=== PATIENT | female | born 1965 | race Caucasian/White ===

== ENCOUNTER 2018-07-01 06:15 | Inpatient (IN) | payer MEDICAID ==
[2018-06-24 11:22] LABS: ALBUMIN 3.5 G/DL (3.4-5.0); ALKALINE PHOSPHATASE 168 IU/L (46-116); BLOOD UREA NITROGEN 8 MG/DL (7-18); BUN/CREATININE RATIO 10.4 (6.6-38.0); CALCIUM 9.3 MG/DL (8.5-10.1); CHLORIDE 100 MMOL/L (99-107); CREATININE 0.77 MG/DL (0.40-0.90); PRE OP ALT 21 U/L (30-65); PRE OP ANION GAP 11 (8-16); PRE OP AST 24 U/L (10-37); PRE OP BILIRUB, TOTAL 0.2 MG/DL (0.0-1.0); PRE OP GLUCOSE 75 MG/DL (70-104); PRE OP SODIUM 143 MMOL/L (135-145); TOTAL CARBON DIOXIDE 31.9 MMOL/L (24-32); eGFR 79 ML/MIN
[2018-06-24 11:24] LABS: PRE OP POTASSIUM 2.9 MMOL/L (3.4-5.1)
[2018-06-24 11:30] LABS: BASOPHILS % (AUTO) 0.6 % (0-1); EOSINOPHILS # (AUTO) 0.1 X10'3 (0-0.9); EOSINOPHILS % (AUTO) 2.8 % (0-6); LYMPHOCYTES # (AUTO) 1.1 X10'3 (1.1-4.8); LYMPHOCYTES % (AUTO) 42.8 % (21-51); MEAN CORPUSCULAR HEMOGLOBIN 34.3 PG (27.0-31.0); MEAN CORPUSCULAR HGB CONC 33.7 % (33.0-36.5); MEAN CORPUSCULAR VOLUME 101.8 FL (78-98); MEAN PLATELET VOLUME 8.2 FL (7.4-10.4); MONOCYTES # (AUTO) 0.3 X10'3 (0-0.9); MONOCYTES % (AUTO) 12.8 % (2-12); NEUTROPHILS # (AUTO) 1.1 X10'3 (1.8-7.7); PRE OP HEMATOCRIT 41.1 % (35.0-45.0); PRE OP HEMOGLOBIN 13.9 g/dL (12.0-16.0); PRE OP PLATELET COUNT 215 X10'3 (140-440); RED BLOOD COUNT 4.03 X10'6 (4.20-5.60); RED CELL DISTRIBUTION WIDTH 16.3 % (11.5-14.5)
[2018-06-24 12:51] LABS: TOTAL CELLS COUNTED 100
[2018-06-24 12:52] LABS: PLATELET ESTIMATE NORMAL
[2018-07-01] VITALS (21 sets, daily range): BP systolic 84–128; BP diastolic 50–77
[~2018-07-01] VITALS: Ht 160 cm; Wt 42.7 kg
[~2018-07-01 06:15] MED LIST: BIOT300T2 PO; CHOL400T14 PO; DULO-31 PO; FOLI1TAB16 PO; LEVE500T PO; MIRT15TA PO; MULT-1085 PO; POTA20TA19 PO; VANCOMYCIN INJ 1000 MG in NORMAL SALINE 250ml IV.SOLN IV ONE; VITA150T PO; VITAMIN B-1; VITE1000C PO; cefazolin/dext.iso 2gm/100 ML IV ONE; famotidine 20mg tablet PO ONE; ringers solution, lacted 1,000 ML IV SCH
[2018-07-01] MEDS ORDERED: LIDOcaine 1% (10mg/ml) 2ml vial ONE (06:33)
[2018-07-01 07:31] LABS: ISTAT CREATININE 0.8 mg/dL (0.6-1.1); ISTAT HGB 14.3 g/dl (12.0-16.0); ISTAT IONIZED CALCIUM 1.25 mmol/L (1.03-1.32); ISTAT K 4.4 mmol/L (3.5-5.1); POC BUN/CREATININE RATIO 11.3 (6.6-38.0)
[2018-07-01] MEDS ORDERED: cloNIDine hcl/PF 100mcg/ml inj ONE (08:24)
[2018-07-01] MEDS ORDERED: sevoflurane 250ml liquid IH ONE (08:25)
[2018-07-01] MEDS ORDERED: midazolam 2 mg/2 ml injection ONE ×2 (08:26→08:28)
[2018-07-01] MEDS ORDERED: fentaNYL/PF 50MCG/1 ML 2ML syringe ONE (08:26)
[2018-07-01] MEDS ORDERED: NORMAL SALINE IV ONE ×3 (08:30→13:40)
[2018-07-01] MEDS ORDERED: TRANEXAMIC ACID IV ONE ×3 (08:30→13:40)
[2018-07-01] MEDS ORDERED: propofol inj 20 ML IV ONE (09:11)
[2018-07-01] MEDS ORDERED: ROPIVAcaine 0.5% (5mg/ml) 30ml vial ONE ×2 (09:11→09:12)
[2018-07-01] MEDS ORDERED: dexamethasone sod phosphate 4mg/ml inj. ONE (09:11)
[2018-07-01] MEDS ORDERED: vancomycin 1,000mg inj ONE (09:12)
[2018-07-01] MEDS ORDERED: ketorolac trometh. 30mg/ml inj. ONE (09:12)
[2018-07-01] MEDS ORDERED: ePHEDrine 50MG/ML INJ. ONE (09:12)
[2018-07-01] MEDS ORDERED: ringers solution, lacted 1,000 ML IV SCH (10:37)
[2018-07-01] MEDS ORDERED: oxyCODONE IR 5mg (immed. release) tablet PO PRN ×2 (10:40)
[2018-07-01] MEDS ORDERED: magnesium hydroxide 30ml (MOM) UD suspension PO PRN (10:40)
[2018-07-01] MEDS ORDERED: HYDROmorphone 1 mg/ml syringe IV PRN ×2 (10:40)
[2018-07-01] MEDS ORDERED: morphine 4 MG/ML inj SYRINge IV PRN (10:40)
[2018-07-01] MEDS ORDERED: diphenhydrAMINE 25mg capsule PO PRN ×2 (10:40)
[2018-07-01] MEDS ORDERED: meperidine/PF 25mg/ml syringe IV PRN (10:40)
[2018-07-01] MEDS ORDERED: bisacodyl 10mg suppository rectal RC PRN (10:40)
[2018-07-01] MEDS ORDERED: ondansetron/PF 4mg/2ml inj IV PRN ×2 (10:40)
[2018-07-01] MEDS ORDERED: acetaminophen 325mg tablet PO PRN (10:40)
[2018-07-01] MEDS ORDERED: ondansetron/PF 4mg/2ml inj ONE (10:46)
[2018-07-01] MEDS: gabapentin 300mg capsule PO SCH ×2 (13:15→20:11)
[2018-07-01] MEDS: acetaminophen 325mg tablet PO SCH ×2 (14:16→20:12)
[2018-07-01] MEDS: ketorolac tromethamine 15mg/ml inj. IV SCH ×2 (14:16→20:12)
[2018-07-01] MEDS: ceFAZolin 1GM/D5W- ADD-VANTAGE 50 ML IV SCH (16:06)
[2018-07-01] MEDS: potassium cl 20mEq in 1/2 NS 1,000 ML IV SCH ×2 (16:06→18:39)
[2018-07-01] MEDS ORDERED: vancomycin/NS 1 GM ADD-VANTAGE 250 ML IV SCH (20:00)
[2018-07-01] MEDS: levetiracetam 250mg tablet PO SCH (20:11)
[2018-07-01] MEDS ORDERED: mirtazapine 15mg tablet PO SCH (21:00)
[2018-07-01] MEDS ORDERED: sennosides 8.6mg tablet PO SCH (21:00)
[2018-07-02] MEDS: ketorolac tromethamine 15mg/ml inj. IV SCH ×2 (01:19→07:34)
[2018-07-02] MEDS: acetaminophen 325mg tablet PO SCH ×2 (01:19→07:36)
[2018-07-02] MEDS: ceFAZolin 1GM/D5W- ADD-VANTAGE 50 ML IV SCH (01:19)
[2018-07-02] MEDS: potassium cl 20mEq in 1/2 NS 1,000 ML IV SCH (01:25)
[2018-07-02 02:00] VITALS: BP 93/53
[2018-07-02 06:08] LABS: BASOPHILS % (AUTO) 0.3 % (0-1); EOSINOPHILS # (AUTO) 0.1 X10'3 (0-0.9); EOSINOPHILS % (AUTO) 1.1 % (0-6); HEMATOCRIT 31.3 % (35.0-45.0); HEMOGLOBIN 10.5 g/dl (12.0-16.0); LYMPHOCYTES # (AUTO) 1.3 X10'3 (1.1-4.8); LYMPHOCYTES % (AUTO) 20.7 % (21-51); MEAN CORPUSCULAR HGB CONC 33.6 % (33.0-36.5); MEAN PLATELET VOLUME 7.7 FL (7.4-10.4); MONOCYTES # (AUTO) 0.4 X10'3 (0-0.9); MONOCYTES % (AUTO) 6.1 % (2-12); NEUTROPHILS # (AUTO) 4.5 X10'3 (1.8-7.7); NEUTROPHILS % (AUTO) 71.8 % (42-75); PLATELET COUNT 241 X10'3 (140-440); RED CELL DISTRIBUTION WIDTH 15.8 % (11.5-14.5); WHITE BLOOD COUNT 6.3 X10'3 (4.5-11.0)
[2018-07-02 06:20] LABS: ANION GAP 4 (8-16); CHLORIDE 109 MMOL/L (99-107); POTASSIUM 4.9 MMOL/L (3.5-5.1); SODIUM 141 MMOL/L (135-145); TOTAL CARBON DIOXIDE 28.5 MMOL/L (24-32)
[2018-07-02] MEDS: gabapentin 300mg capsule PO SCH (07:35)
[2018-07-02] MEDS: levetiracetam 250mg tablet PO SCH (07:35)
[2018-07-02] MEDS ORDERED: potassium Cl 20 mEq SR tablet PO SCH (08:00)
[2018-07-02] MEDS ORDERED: folic acid 1mg tablet PO SCH (08:00)
[2018-07-02] MEDS ORDERED: multivitamins, therapeutics tablet PO SCH (08:00)
[2018-07-02] MEDS ORDERED: duloxetine 30mg CAPSULE.DR PO SCH (08:00)
[2018-07-02] MEDS ORDERED: aspirin 325mg tablet PO SCH (08:30)
[2018-07-02] MEDS ORDERED: celeCOXIB 100mg capsule PO SCH (20:00)
[2018-07-03] MEDS ORDERED: acetaminophen 325mg tablet PO PRN (10:40)
== END 2018-07-02 13:20 | disposition home or self-care (01) | DRG 315 ==
LOC: PAS IN 06:15 → ORTHO 4S 12:17 → EDSTATUS 13:15
PROVIDERS: ADMIT Orthopaedic Surgery; ATTEND Orthopaedic Surgery
PROC: 3E0T3BZ Introduction of Anesthetic Agent into Peripheral Nerves and Plexi, Percutaneous Approach (ICD-10-PCS; 2018-07-01)
PROC: BP1 Imaging, Non-Axial Upper Bones, Fluoroscopy (ICD-10-PCS; 2018-07-01)
PROC: 0PSG04Z Reposition Left Humeral Shaft with Internal Fixation Device, Open Approach (ICD-10-PCS; principal; 2018-07-01 08:25)
DX: S42.322A Displaced transverse fracture of shaft of humerus, left arm, initial encounter for closed fracture (principal); E43 Unspecified severe protein-calorie malnutrition; D62 Acute posthemorrhagic anemia; G40.909 Epilepsy, unspecified, not intractable, without status epilepticus; G89.29 Other chronic pain; F32.9 Major depressive disorder, single episode, unspecified; R33.9 Retention of urine, unspecified; Z79.899 Other long term (current) drug therapy
CPT/HCPCS: 36415; 73060; 76001; 80047; 80051; 80053; 85025; 87070; 93005; 97116; 97161; A4565; A7000; C1713; G0378; J0690; J0735; J1100; J1170; J1885; J2250; J2405; J2704; J2795; J3010; J3370; J3490; J7030; J7040; J7120

== ENCOUNTER 2018-07-19 14:32 | Inpatient (IN) | payer MEDICAID ==
[~2018-07-19] VITALS: Ht 160 cm; Wt 47.0 kg
[~2018-07-19 14:32] MED LIST changes: -VANCOMYCIN INJ 1000 MG in NORMAL SALINE 250ml IV.SOLN IV ONE; -cefazolin/dext.iso 2gm/100 ML IV ONE; -famotidine 20mg tablet PO ONE; -ringers solution, lacted 1,000 ML IV SCH
[2018-07-19] MEDS ORDERED: normal saline 1000ml 1,000 ML IV ONE (14:56)
[2018-07-19] MEDS ORDERED: TETanus/Pertussis (Acell)/Diphther VAC/PF (Tdap-Adult) 0.5ml syringe IM ONE (15:10)
[2018-07-19] MEDS ORDERED: LIDOcaine 1% w/EPI 1:100,000 30ml vial (MDV) IJ ONE (15:10)
[2018-07-19] MEDS ORDERED: LIDOcaine 1.5% w/epinephrine 1:200,000 5ml ampul IJ ONE (15:10)
[2018-07-19 15:38] LABS: BASOPHILS % (AUTO) 0.1 % (0-1); EOSINOPHILS % (AUTO) 0.1 % (0-6); HEMATOCRIT 32.1 % (35.0-45.0); HEMOGLOBIN 10.9 g/dl (12.0-16.0); LYMPHOCYTES # (AUTO) 0.4 X10'3 (1.1-4.8); LYMPHOCYTES % (AUTO) 7.4 % (21-51); MEAN CORPUSCULAR HEMOGLOBIN 34.8 PG (27.0-31.0); MEAN CORPUSCULAR HGB CONC 33.8 % (33.0-36.5); MEAN CORPUSCULAR VOLUME 102.8 FL (78-98); MEAN PLATELET VOLUME 6.1 FL (7.4-10.4); MONOCYTES # (AUTO) 0.2 X10'3 (0-0.9); NEUTROPHILS # (AUTO) 4.6 X10'3 (1.8-7.7); NEUTROPHILS % (AUTO) 88.4 % (42-75); PLATELET COUNT 278 X10'3 (140-440); RED BLOOD COUNT 3.13 X10'6 (4.20-5.60); RED CELL DISTRIBUTION WIDTH 16.1 % (11.5-14.5); WHITE BLOOD COUNT 5.2 X10'3 (4.5-11.0)
[2018-07-19 15:51] LABS: PARTIAL THROMBOPLASTIN TIME 26 SECONDS (22-32); PROTHROMBIN TIME 10.5 SECONDS (9.0-12.0)
[2018-07-19 15:53] LABS: ALANINE AMINOTRANSFERASE 20 U/L (12-78); ALBUMIN 2.9 G/DL (3.4-5.0); ALBUMIN/GLOBULIN RATIO 0.9 (1.1-1.5); ALKALINE PHOSPHATASE 235 IU/L (46-116); ANION GAP 7 (8-16); ASPARTATE AMINO TRANSFERASE 35 U/L (10-37); BILIRUBIN,TOTAL 0.5 MG/DL (0.1-1.0); BLOOD UREA NITROGEN 5 MG/DL (7-18); BUN/CREATININE RATIO 9.1 (6.6-38.0); CALCIUM 8.4 MG/DL (8.5-10.1); CHLORIDE 94 MMOL/L (99-107); CREATININE 0.55 MG/DL (0.40-0.90); ETHANOL < 0.010 GM/DL (0.0-0.010); GLUCOSE 157 MG/DL (70-104); MAGNESIUM 1.5 MG/DL (1.5-2.4); SODIUM 138 MMOL/L (135-145); eGFR > 90 ML/MIN
[2018-07-19] MEDS ORDERED: LORazepam 2 mg/ml vial IV ONE ×2 (15:55→18:25)
[2018-07-19 15:56] LABS: POTASSIUM 2.8 MMOL/L (3.5-5.1)
[2018-07-19] MEDS ORDERED: levetiracetam inj 1,000 MG in normal saline 100ml IV soln 90 ML IV ONE (16:00)
[2018-07-19] MEDS ORDERED: magnesium 2GM in 50ml NS 50 ML IV SCH (16:05)
[2018-07-19] MEDS ORDERED: potassium 10mEq/100ml NS w/LIDOcaine (10mg/bag) IV ONE (16:05)
[2018-07-19 16:10] LABS: CREATINE KINASE 115 U/L (26-192)
[2018-07-19 17:12] LABS: PHOSPHORUS 3.2 MG/DL (2.3-4.5)
[2018-07-19 17:37] LABS: URINE HCG NEGATIVE (NEG)
[2018-07-19 17:40] LABS: CLARITY,URINE SLIGHTLY CLOUDY (Clear); COLOR,URINE YELLOW (Yellow); GLUCOSE, URINE NEGATIVE (Neg); KETONES,URINE NEGATIVE (Neg); LEUKOCYTE ESTERASE ,URINE NEGATIVE (Neg); NITRITES, URINE NEGATIVE (Neg); OCCULT BLOOD,URINE NEGATIVE (Neg); PH,URINE 8.5 (4.8-8.0); PROTEIN,URINE NEGATIVE (Neg); UROBILINOGEN,URINE 0.2 E.U/dL (0.2-1.0)
[2018-07-19 17:41] LABS: UA COLLECTION TYPE CLN CATCH MIDSTREAM
[2018-07-19 17:49] LABS: AMORPHOUS PHOSPHATES 3+; BACTERIA,URINE NONE SEEN /HPF (Neg); SQUAMOUS EPITHELIAL CELL,UR FEW /LPF (FEW); WBC,URINE 0-4 /HPF (0-4)
[2018-07-19 17:52] LABS: RBC,URINE 0-2 /HPF (0-2); URINE AMPHETAMINE SCREEN NEGATIVE (Neg); URINE BARBITUATE SCREEN NEGATIVE (Neg); URINE BENZODIAZEPINES SCREEN POSITIVE (Neg); URINE CANNABINOID SCREEN POSITIVE (Neg); URINE COCAINE SCREEN NEGATIVE (Neg); URINE METHADONE SCREEN NEGATIVE (Neg); URINE OPIATE SCREEN POSITIVE (Neg); URINE PHENCYCLIDINE SCREEN NEGATIVE (Neg)
[2018-07-19] MEDS ORDERED: LORazepam 2 mg/ml vial IV PRN (18:25)
[2018-07-19] MEDS ORDERED: normal saline 1000ml 1,000 ML IV SCH (18:41)
[2018-07-19] MEDS ORDERED: pantoprazole 40 MG vial IV ONE (18:41)
[2018-07-19] MEDS ORDERED: ondansetron/PF 4mg/2ml inj IV PRN (18:45)
[2018-07-19] MEDS ORDERED: magnesium Cl slow-release 64mg tablet PO PRN (18:45)
[2018-07-19] MEDS ORDERED: potassium Cl 20 mEq SR tablet PO PRN (18:45)
[2018-07-19] MEDS ORDERED: acetaminophen 650mg rectal suppository RC PRN (18:45)
[2018-07-19] MEDS ORDERED: sodium phosphate inj. 15 MMOL in dextrose 5%-water 150 ML IV PRN (18:45)
[2018-07-19] MEDS ORDERED: magnesium 4gm in 100ml NS 100 ML IV PRN (18:45)
[2018-07-19] MEDS ORDERED: magnesium 1gm/100ml D5W IVPB 100 ML IV PRN (18:45)
[2018-07-19] MEDS ORDERED: Neutra Phos packet PO PRN (18:45)
[2018-07-19] MEDS ORDERED: sodium phosphate inj. 30 MMOL in dextrose 5%-water 250 ML IV PRN (18:45)
[2018-07-19] MEDS ORDERED: potassium Cl 40MEQ/NS 500ml 500 ML IV PRN ×2 (18:45)
[2018-07-19] MEDS: K, MAG and/or Phos replacement - Verify level? MC SCH (18:50)
[2018-07-20 03:35] LABS: ALBUMIN 1.9 G/DL (3.4-5.0); ANION GAP 8 (8-16); BLOOD UREA NITROGEN 3 MG/DL (7-18); CHLORIDE 108 MMOL/L (99-107); MAGNESIUM 1.7 MG/DL (1.5-2.4); POTASSIUM 3.4 MMOL/L (3.5-5.1); SODIUM 143 MMOL/L (135-145); TOTAL CARBON DIOXIDE 27.1 MMOL/L (24-32)
[2018-07-20 03:48] LABS: ALANINE AMINOTRANSFERASE 15 U/L (12-78); ALBUMIN/GLOBULIN RATIO 0.8 (1.1-1.5); ALKALINE PHOSPHATASE 178 IU/L (46-116); ASPARTATE AMINO TRANSFERASE 28 U/L (10-37); BILIRUBIN,TOTAL 0.5 MG/DL (0.1-1.0); BUN/CREATININE RATIO 7.5 (6.6-38.0); GLUCOSE 62 MG/DL (70-104); TOTAL PROTEIN 4.3 G/DL (6.4-8.2); eGFR > 90 ML/MIN
[2018-07-20 03:49] LABS: CALCIUM 6.7 MG/DL (8.5-10.1)
[2018-07-20] MEDS ORDERED: glucagon, human recombinant 1mg kit SUBCUT PRN (04:00)
[2018-07-20] MEDS ORDERED: dextrose ORAL solution 15 GM/59 ML bottle PO PRN ×2 (04:00)
[2018-07-20] MEDS ORDERED: dextrose 50%-water 50ml dispensing syringe IV ONE (04:00)
[2018-07-20] MEDS ORDERED: dextrose 50%-water 50ml dispensing syringe IV PRN ×2 (04:00)
[2018-07-20] MEDS: dextrose 5%-1/2 normal saline 1,000 ML IV SCH ×3 (04:11→22:29)
[2018-07-20] MEDS ORDERED: levetiracetam inj 500 MG in normal saline 100ml IV soln 95 ML IV SCH (08:00)
[2018-07-20] MEDS: K, MAG and/or Phos replacement - Verify level? MC SCH (08:00)
[2018-07-20] MEDS: pantoprazole 40 MG vial IV SCH (10:01)
[2018-07-20] MEDS ORDERED: FOLI0.4T2 PO (11:57)
[2018-07-20] MEDS ORDERED: HYDR-4353 PO (11:57)
[2018-07-20] MEDS ORDERED: BIOT1TAB2 (11:57)
[2018-07-20 12:49] LABS: BASOPHILS % (AUTO) 0 % (0-1); EOSINOPHILS # (AUTO) 0.1 X10'3 (0-0.9); EOSINOPHILS % (AUTO) 1.3 % (0-6); HEMATOCRIT 32.7 % (35.0-45.0); HEMOGLOBIN 11.2 g/dl (12.0-16.0); LYMPHOCYTES # (AUTO) 0.6 X10'3 (1.1-4.8); LYMPHOCYTES % (AUTO) 15.4 % (21-51); MEAN CORPUSCULAR HEMOGLOBIN 35.1 PG (27.0-31.0); MEAN CORPUSCULAR HGB CONC 34.3 % (33.0-36.5); MEAN CORPUSCULAR VOLUME 102.3 FL (78-98); MEAN PLATELET VOLUME 6.8 FL (7.4-10.4); MONOCYTES # (AUTO) 0.2 X10'3 (0-0.9); MONOCYTES % (AUTO) 4.3 % (2-12); PLATELET COUNT 267 X10'3 (140-440); WHITE BLOOD COUNT 3.7 X10'3 (4.5-11.0)
[2018-07-20] MEDS ORDERED: aspirin 325mg tablet PO ONE (14:20)
[2018-07-20 14:32] VITALS: BP 132/81
[2018-07-20 15:22] LABS: CHOL/HDL RATIO 1.8 (0.00-4.99); CHOLESTEROL 175 MG/DL (0-200); HDL CHOLESTEROL 96 MG/DL (35-60); LDL CHOLESTEROL 67 MG/DL (50-100); TRIGLYCERIDES 35 MG/DL (20-135)
[2018-07-20] MEDS: thiamine inj. 100 MG, magnesium sulf injection 2 GM, MVI, adult No.4 with vit. K 10 ML ... IV SCH ×4 (16:17)
[2018-07-20] MEDS ORDERED: LORazepam 2 mg/ml vial IM PRN (17:20)
[2018-07-20] MEDS: morphine 2 MG/ML inj. syringe IV PRN (17:32)
[2018-07-20 18:00] VITALS: BP 156/86
[2018-07-20] MEDS: LORazepam 2 mg/ml vial IV PRN (21:07)
[2018-07-20] MEDS: levetiracetam inj 750 MG in normal saline 100ml IV soln 92.5 ML IV SCH (21:53)
[2018-07-20 22:00] VITALS: BP 145/84
[2018-07-21 02:30] VITALS: BP 131/83
[2018-07-21 06:16] LABS: BASOPHILS % (AUTO) 0.4 % (0-1); EOSINOPHILS # (AUTO) 0.3 X10'3 (0-0.9); EOSINOPHILS % (AUTO) 7.2 % (0-6); HEMATOCRIT 32.1 % (35.0-45.0); HEMOGLOBIN 11.1 g/dl (12.0-16.0); LYMPHOCYTES # (AUTO) 1.1 X10'3 (1.1-4.8); LYMPHOCYTES % (AUTO) 30.3 % (21-51); MEAN CORPUSCULAR HEMOGLOBIN 34.9 PG (27.0-31.0); MEAN CORPUSCULAR HGB CONC 34.4 % (33.0-36.5); MEAN CORPUSCULAR VOLUME 101.3 FL (78-98); MONOCYTES # (AUTO) 0.3 X10'3 (0-0.9); MONOCYTES % (AUTO) 8.7 % (2-12); NEUTROPHILS % (AUTO) 53.4 % (42-75); PLATELET COUNT 250 X10'3 (140-440); RED BLOOD COUNT 3.17 X10'6 (4.20-5.60); RED CELL DISTRIBUTION WIDTH 15.7 % (11.5-14.5); WHITE BLOOD COUNT 3.7 X10'3 (4.5-11.0)
[2018-07-21 06:34] LABS: ALANINE AMINOTRANSFERASE 17 U/L (12-78); ALBUMIN 2.4 G/DL (3.4-5.0); ALBUMIN/GLOBULIN RATIO 0.8 (1.1-1.5); ALKALINE PHOSPHATASE 208 IU/L (46-116); ANION GAP 7 (8-16); ASPARTATE AMINO TRANSFERASE 25 U/L (10-37); BILIRUBIN,TOTAL 0.6 MG/DL (0.1-1.0); BLOOD UREA NITROGEN 4 MG/DL (7-18); BUN/CREATININE RATIO 7.1 (6.6-38.0); CALCIUM 8.1 MG/DL (8.5-10.1); CHLORIDE 107 MMOL/L (99-107); CREATININE 0.56 MG/DL (0.40-0.90); GLUCOSE 103 MG/DL (70-104); MAGNESIUM 2.2 MG/DL (1.5-2.4); PHOSPHORUS 2.4 MG/DL (2.3-4.5); POTASSIUM 3.3 MMOL/L (3.5-5.1); SODIUM 142 MMOL/L (135-145); TOTAL CARBON DIOXIDE 27.7 MMOL/L (24-32); TOTAL PROTEIN 5.3 G/DL (6.4-8.2); eGFR > 90 ML/MIN
[2018-07-21] MEDS: K, MAG and/or Phos replacement - Verify level? MC SCH (08:00)
[2018-07-21] MEDS: pantoprazole 40 MG vial IV SCH (09:15)
[2018-07-21] MEDS: potassium Cl 20 mEq SR tablet PO PRN ×2 (09:15→19:05)
[2018-07-21] MEDS: thiamine inj. 100 MG, magnesium sulf injection 2 GM, MVI, adult No.4 with vit. K 10 ML ... IV SCH ×4 (09:15)
[2018-07-21] MEDS: levetiracetam inj 750 MG in normal saline 100ml IV soln 92.5 ML IV SCH (09:15)
[2018-07-21] MEDS: aspirin 325mg tablet PO SCH (09:16)
[2018-07-21 10:00] VITALS: BP 132/78
[2018-07-21] MEDS: dextrose 5%-1/2 normal saline 1,000 ML IV SCH (10:00)
[2018-07-21 14:00] VITALS: BP 117/75
[2018-07-21] MEDS: thiamine 100mg tablet PO SCH ×2 (15:20→19:05)
[2018-07-21 18:30] VITALS: BP 138/82
[2018-07-21] MEDS: levetiracetam 250mg tablet PO SCH (19:05)
[2018-07-21] MEDS: folic acid 0.4mg tablet PO SCH (19:05)
[2018-07-21] MEDS: duloxetine 30mg CAPSULE.DR PO SCH (19:05)
[2018-07-21] MEDS: magnesium Cl slow-release 64mg tablet PO SCH (19:06)
[2018-07-21] MEDS: acetaminophen 325mg tablet PO PRN (19:57)
[2018-07-21] MEDS ORDERED: non-formulary drug (Levetiracetam 500 MG) PO SCH (20:00)
[2018-07-21 21:44] VITALS: BP 125/79
[2018-07-22] MEDS: morphine 2 MG/ML inj. syringe IV PRN ×3 (00:18→21:35)
[2018-07-22] MEDS: thiamine 100mg tablet PO SCH ×4 (02:26→19:22)
[2018-07-22 03:19] VITALS: BP 142/91
[2018-07-22 06:27] LABS: BASOPHILS % (AUTO) 0.6 % (0-1); EOSINOPHILS # (AUTO) 0.4 X10'3 (0-0.9); HEMATOCRIT 30.6 % (35.0-45.0); HEMOGLOBIN 10.4 g/dl (12.0-16.0); LYMPHOCYTES # (AUTO) 1.1 X10'3 (1.1-4.8); LYMPHOCYTES % (AUTO) 24.7 % (21-51); MEAN CORPUSCULAR HEMOGLOBIN 34.9 PG (27.0-31.0); MEAN CORPUSCULAR VOLUME 102.8 FL (78-98); MEAN PLATELET VOLUME 6.9 FL (7.4-10.4); MONOCYTES # (AUTO) 0.4 X10'3 (0-0.9); MONOCYTES % (AUTO) 8.6 % (2-12); NEUTROPHILS # (AUTO) 2.6 X10'3 (1.8-7.7); NEUTROPHILS % (AUTO) 58.1 % (42-75); PLATELET COUNT 226 X10'3 (140-440); RED BLOOD COUNT 2.98 X10'6 (4.20-5.60); RED CELL DISTRIBUTION WIDTH 15.2 % (11.5-14.5); WHITE BLOOD COUNT 4.5 X10'3 (4.5-11.0)
[2018-07-22 06:48] LABS: ALANINE AMINOTRANSFERASE 16 U/L (12-78); ALBUMIN 2.4 G/DL (3.4-5.0); ALBUMIN/GLOBULIN RATIO 0.8 (1.1-1.5); ALKALINE PHOSPHATASE 188 IU/L (46-116); ANION GAP 7 (8-16); ASPARTATE AMINO TRANSFERASE 21 U/L (10-37); BILIRUBIN,TOTAL 0.5 MG/DL (0.1-1.0); BLOOD UREA NITROGEN 8 MG/DL (7-18); BUN/CREATININE RATIO 13.6 (6.6-38.0); CALCIUM 8.5 MG/DL (8.5-10.1); CHLORIDE 102 MMOL/L (99-107); CREATININE 0.59 MG/DL (0.40-0.90); GLUCOSE 99 MG/DL (70-104); MAGNESIUM 1.9 MG/DL (1.5-2.4); PHOSPHORUS 2.5 MG/DL (2.3-4.5); POTASSIUM 4.2 MMOL/L (3.5-5.1); SODIUM 136 MMOL/L (135-145); TOTAL CARBON DIOXIDE 27.2 MMOL/L (24-32); TOTAL PROTEIN 5.3 G/DL (6.4-8.2); eGFR > 90 ML/MIN
[2018-07-22] MEDS: K, MAG and/or Phos replacement - Verify level? MC SCH (08:17)
[2018-07-22] MEDS: duloxetine 30mg CAPSULE.DR PO SCH (08:36)
[2018-07-22] MEDS: pantoprazole 40mg Tablet.DR PO SCH (08:36)
[2018-07-22] MEDS: magnesium Cl slow-release 64mg tablet PO SCH ×2 (08:37→19:22)
[2018-07-22] MEDS: folic acid 0.4mg tablet PO SCH (08:37)
[2018-07-22] MEDS: levetiracetam 250mg tablet PO SCH ×2 (08:37→19:23)
[2018-07-22] MEDS: aspirin 325mg tablet PO SCH (08:37)
[2018-07-22] MEDS: multivitamins, therapeutics tablet PO SCH (08:37)
[2018-07-22] MEDS: cholecalciferol (vitamin D) 400 unit tablet PO SCH (08:37)
[2018-07-22] MEDS: vitamin B comp w/Vit. C tab 1 TAB TABLET PO SCH (08:37)
[2018-07-22 10:00] VITALS: BP 128/87
[2018-07-22 14:00] VITALS: BP 124/80
[2018-07-22 18:00] VITALS: BP 119/75
[2018-07-22 22:00] VITALS: BP 140/92
[2018-07-23] MEDS: LORazepam 2 mg/ml vial IV PRN (01:51)
[2018-07-23] MEDS: acetaminophen 325mg tablet PO PRN (01:52)
[2018-07-23] MEDS: thiamine 100mg tablet PO SCH ×4 (02:01→19:59)
[2018-07-23 05:00] VITALS: BP 142/88
[2018-07-23] MEDS: levetiracetam 250mg tablet PO SCH ×2 (07:58→19:58)
[2018-07-23] MEDS: magnesium Cl slow-release 64mg tablet PO SCH ×2 (07:59→19:58)
[2018-07-23] MEDS: duloxetine 30mg CAPSULE.DR PO SCH (07:59)
[2018-07-23] MEDS: vitamin B comp w/Vit. C tab 1 TAB TABLET PO SCH (07:59)
[2018-07-23] MEDS: aspirin 325mg tablet PO SCH (07:59)
[2018-07-23] MEDS: pantoprazole 40mg Tablet.DR PO SCH (07:59)
[2018-07-23] MEDS: folic acid 0.4mg tablet PO SCH (07:59)
[2018-07-23] MEDS: multivitamins, therapeutics tablet PO SCH (07:59)
[2018-07-23] MEDS: cholecalciferol (vitamin D) 400 unit tablet PO SCH (07:59)
[2018-07-23] MEDS: K, MAG and/or Phos replacement - Verify level? MC SCH (08:00)
[2018-07-23 08:23] LABS: BASOPHILS % (AUTO) 0.5 % (0-1); EOSINOPHILS # (AUTO) 0.3 X10'3 (0-0.9); EOSINOPHILS % (AUTO) 8.3 % (0-6); HEMATOCRIT 33.5 % (35.0-45.0); HEMOGLOBIN 11.5 g/dl (12.0-16.0); LYMPHOCYTES # (AUTO) 1.2 X10'3 (1.1-4.8); LYMPHOCYTES % (AUTO) 35.1 % (21-51); MEAN CORPUSCULAR HGB CONC 34.2 % (33.0-36.5); MEAN CORPUSCULAR VOLUME 102.4 FL (78-98); MEAN PLATELET VOLUME 6.9 FL (7.4-10.4); MONOCYTES # (AUTO) 0.4 X10'3 (0-0.9); MONOCYTES % (AUTO) 10.7 % (2-12); NEUTROPHILS # (AUTO) 1.5 X10'3 (1.8-7.7); NEUTROPHILS % (AUTO) 45.4 % (42-75); PLATELET COUNT 225 X10'3 (140-440); RED BLOOD COUNT 3.27 X10'6 (4.20-5.60); RED CELL DISTRIBUTION WIDTH 15.7 % (11.5-14.5); WHITE BLOOD COUNT 3.4 X10'3 (4.5-11.0)
[2018-07-23 09:02] LABS: ALANINE AMINOTRANSFERASE 14 U/L (12-78); ALBUMIN 2.5 G/DL (3.4-5.0); ALBUMIN/GLOBULIN RATIO 0.8 (1.1-1.5); ALKALINE PHOSPHATASE 186 IU/L (46-116); ASPARTATE AMINO TRANSFERASE 18 U/L (10-37); BILIRUBIN,TOTAL 0.4 MG/DL (0.1-1.0); BLOOD UREA NITROGEN 7 MG/DL (7-18); BUN/CREATININE RATIO 13.5 (6.6-38.0); CREATININE 0.52 MG/DL (0.40-0.90); GLUCOSE 93 MG/DL (70-104); MAGNESIUM 1.8 MG/DL (1.5-2.4); PHOSPHORUS 3.7 MG/DL (2.3-4.5); TOTAL PROTEIN 5.7 G/DL (6.4-8.2); eGFR > 90 ML/MIN
[2018-07-23 09:14] LABS: ANION GAP 8 (8-16); CHLORIDE 105 MMOL/L (99-107); POTASSIUM 3.9 MMOL/L (3.5-5.1); SODIUM 139 MMOL/L (135-145)
[2018-07-23 10:07] VITALS: BP 103/66
[2018-07-23 18:00] VITALS: BP 118/76
[2018-07-23 22:00] VITALS: BP 126/78
[2018-07-24] MEDS: thiamine 100mg tablet PO SCH ×4 (02:15→19:59)
[2018-07-24] MEDS: acetaminophen 325mg tablet PO PRN (02:19)
[2018-07-24] MEDS: morphine 2 MG/ML inj. syringe IV PRN (05:38)
[2018-07-24 06:00] VITALS: BP 118/74
[2018-07-24 06:41] LABS: BASOPHILS % (AUTO) 0.5 % (0-1); EOSINOPHILS # (AUTO) 0.2 X10'3 (0-0.9); EOSINOPHILS % (AUTO) 6.1 % (0-6); HEMOGLOBIN 11.5 g/dl (12.0-16.0); LYMPHOCYTES # (AUTO) 1.2 X10'3 (1.1-4.8); LYMPHOCYTES % (AUTO) 32.4 % (21-51); MEAN CORPUSCULAR HEMOGLOBIN 35.3 PG (27.0-31.0); MEAN CORPUSCULAR HGB CONC 33.9 % (33.0-36.5); MEAN CORPUSCULAR VOLUME 104.1 FL (78-98); MEAN PLATELET VOLUME 7.5 FL (7.4-10.4); MONOCYTES # (AUTO) 0.4 X10'3 (0-0.9); MONOCYTES % (AUTO) 9.9 % (2-12); NEUTROPHILS % (AUTO) 51.1 % (42-75); PLATELET COUNT 272 X10'3 (140-440); RED BLOOD COUNT 3.26 X10'6 (4.20-5.60); RED CELL DISTRIBUTION WIDTH 16.3 % (11.5-14.5); WHITE BLOOD COUNT 3.8 X10'3 (4.5-11.0)
[2018-07-24 07:20] LABS: ALANINE AMINOTRANSFERASE 16 U/L (12-78); ALBUMIN 2.8 G/DL (3.4-5.0); ALBUMIN/GLOBULIN RATIO 0.8 (1.1-1.5); ALKALINE PHOSPHATASE 194 IU/L (46-116); ANION GAP 6 (8-16); ASPARTATE AMINO TRANSFERASE 20 U/L (10-37); BILIRUBIN,TOTAL 0.4 MG/DL (0.1-1.0); BLOOD UREA NITROGEN 9 MG/DL (7-18); CALCIUM 9.6 MG/DL (8.5-10.1); CHLORIDE 104 MMOL/L (99-107); CREATININE 0.69 MG/DL (0.40-0.90); GLUCOSE 94 MG/DL (70-104); MAGNESIUM 1.9 MG/DL (1.5-2.4); PHOSPHORUS 3.7 MG/DL (2.3-4.5); POTASSIUM 4.9 MMOL/L (3.5-5.1); SODIUM 141 MMOL/L (135-145); TOTAL CARBON DIOXIDE 30.9 MMOL/L (24-32); TOTAL PROTEIN 6.2 G/DL (6.4-8.2); eGFR 89 ML/MIN
[2018-07-24] MEDS: K, MAG and/or Phos replacement - Verify level? MC SCH (07:38)
[2018-07-24] MEDS: cholecalciferol (vitamin D) 400 unit tablet PO SCH (07:48)
[2018-07-24] MEDS: aspirin 325mg tablet PO SCH (07:48)
[2018-07-24] MEDS: magnesium Cl slow-release 64mg tablet PO SCH ×2 (07:49→19:59)
[2018-07-24] MEDS: folic acid 0.4mg tablet PO SCH (07:49)
[2018-07-24] MEDS: vitamin B comp w/Vit. C tab 1 TAB TABLET PO SCH (07:49)
[2018-07-24] MEDS: levetiracetam 250mg tablet PO SCH ×2 (07:49→19:59)
[2018-07-24] MEDS: duloxetine 30mg CAPSULE.DR PO SCH (07:49)
[2018-07-24] MEDS: pantoprazole 40mg Tablet.DR PO SCH (07:50)
[2018-07-24] MEDS: multivitamins, therapeutics tablet PO SCH (07:53)
[2018-07-24 10:00] VITALS: BP 114/77
[2018-07-24] MEDS: LORazepam 2 mg/ml vial IV PRN (14:27)
[2018-07-24 14:54] VITALS: BP 112/67
[2018-07-24] MEDS: traMADol 50MG tablet PO PRN (17:40)
[2018-07-24 18:00] VITALS: BP 109/67
[2018-07-24 22:00] VITALS: BP 124/85
[2018-07-25] MEDS: traMADol 50MG tablet PO PRN (01:34)
[2018-07-25] MEDS: thiamine 100mg tablet PO SCH ×2 (02:04→07:28)
[2018-07-25 06:49] VITALS: BP 123/75
[2018-07-25 07:15] LABS: BASOPHILS % (AUTO) 0.7 % (0-1); EOSINOPHILS # (AUTO) 0.3 X10'3 (0-0.9); EOSINOPHILS % (AUTO) 6.4 % (0-6); HEMATOCRIT 32.6 % (35.0-45.0); LYMPHOCYTES # (AUTO) 1.6 X10'3 (1.1-4.8); MEAN CORPUSCULAR HEMOGLOBIN 35.3 PG (27.0-31.0); MEAN CORPUSCULAR HGB CONC 33.9 % (33.0-36.5); MEAN CORPUSCULAR VOLUME 104.4 FL (78-98); MEAN PLATELET VOLUME 7.1 FL (7.4-10.4); MONOCYTES # (AUTO) 0.4 X10'3 (0-0.9); MONOCYTES % (AUTO) 9.9 % (2-12); NEUTROPHILS # (AUTO) 1.8 X10'3 (1.8-7.7); PLATELET COUNT 261 X10'3 (140-440); RED BLOOD COUNT 3.12 X10'6 (4.20-5.60); RED CELL DISTRIBUTION WIDTH 16.3 % (11.5-14.5); WHITE BLOOD COUNT 4.1 X10'3 (4.5-11.0)
[2018-07-25] MEDS: K, MAG and/or Phos replacement - Verify level? MC SCH (07:18)
[2018-07-25] MEDS: duloxetine 30mg CAPSULE.DR PO SCH (07:26)
[2018-07-25] MEDS: pantoprazole 40mg Tablet.DR PO SCH (07:26)
[2018-07-25] MEDS: levetiracetam 250mg tablet PO SCH (07:27)
[2018-07-25] MEDS: magnesium Cl slow-release 64mg tablet PO SCH (07:27)
[2018-07-25] MEDS: folic acid 0.4mg tablet PO SCH (07:27)
[2018-07-25] MEDS: vitamin B comp w/Vit. C tab 1 TAB TABLET PO SCH (07:27)
[2018-07-25] MEDS: aspirin 325mg tablet PO SCH (07:28)
[2018-07-25] MEDS: cholecalciferol (vitamin D) 400 unit tablet PO SCH (07:28)
[2018-07-25] MEDS: multivitamins, therapeutics tablet PO SCH (07:28)
[2018-07-25 07:45] LABS: ALANINE AMINOTRANSFERASE 15 U/L (12-78); ALBUMIN 2.7 G/DL (3.4-5.0); ALBUMIN/GLOBULIN RATIO 0.8 (1.1-1.5); ALKALINE PHOSPHATASE 186 IU/L (46-116); ANION GAP 7 (8-16); ASPARTATE AMINO TRANSFERASE 19 U/L (10-37); BILIRUBIN,TOTAL 0.2 MG/DL (0.1-1.0); BLOOD UREA NITROGEN 8 MG/DL (7-18); BUN/CREATININE RATIO 12.3 (6.6-38.0); CALCIUM 9.6 MG/DL (8.5-10.1); CHLORIDE 104 MMOL/L (99-107); CREATININE 0.65 MG/DL (0.40-0.90); GLUCOSE 89 MG/DL (70-104); MAGNESIUM 1.9 MG/DL (1.5-2.4); SODIUM 140 MMOL/L (135-145); TOTAL CARBON DIOXIDE 29.4 MMOL/L (24-32); TOTAL PROTEIN 6.1 G/DL (6.4-8.2); eGFR > 90 ML/MIN
[2018-07-25 10:00] VITALS: BP 137/81
[2018-07-25] MEDS ORDERED: LEVE250T PO (10:01)
== END 2018-07-25 13:20 | disposition home or self-care (01) | DRG 813 ==
LOC: ER 14:32 → ED HOLD 18:41 → ORTHO 4S 07-20 13:25 → CMPBEDREQ 07-21 19:55
PROVIDERS: ADMIT Physician Assistant
PROC: 4A10X4Z Monitoring of Central Nervous Electrical Activity, External Approach (ICD-10-PCS; principal; 2018-07-21)
DX: M96.840 Postprocedural hematoma of a musculoskeletal structure following a musculoskeletal system procedure (principal); G83.84 Todd's paralysis (postepileptic); E83.51 Hypocalcemia; E87.6 Hypokalemia; R47.01 Aphasia; S01.01XA Laceration without foreign body of scalp, initial encounter; Y83.8 Other surgical procedures as the cause of abnormal reaction of the patient, or of later complication, without mention of misadventure at the time of the procedure; Y79.2 Prosthetic and other implants, materials and accessory orthopedic devices associated with adverse incidents; F10.230 Alcohol dependence with withdrawal, uncomplicated; G40.901 Epilepsy, unspecified, not intractable, with status epilepticus; R47.02 Dysphasia; Z96.619 Presence of unspecified artificial shoulder joint; Z79.899 Other long term (current) drug therapy; Y92.89 Other specified places as the place of occurrence of the external cause; S42.202G Unspecified fracture of upper end of left humerus, subsequent encounter for fracture with delayed healing
CPT/HCPCS: 36415; 70450; 70544; 70551; 71045; 73030; 80053; 80061; 80177; 80305; 80320; 81001; 81025; 82310; 82550; 82948; 83735; 83874; 84100; 85025; 85610; 85730; 87070; 90471; 90715; 92507; 92616; 93005; 93306; 93880; 95816; 96361; 96365; 96375; 97110; 97116; 97162; 97530; 99291; C9113; G0378; J1953; J2060; J2270; J3411; J3475; J3480; J3490; J7030; J7060

== ENCOUNTER 2018-09-16 10:39 | Inpatient (IN) | payer MEDICAID | END 2018-09-19 14:30 | disposition home or self-care (01) | LOC: ER 10:39 → ED HOLD 12:24 → ORTHO 4S 19:58 ==

== ENCOUNTER 2018-11-18 10:48 | Inpatient (IN) | payer MEDICAID ==
[2018-11-17 14:52] LABS: BASOPHILS # (AUTO) 0.1 X10'3 (0-0.2); BASOPHILS % (AUTO) 1.2 % (0-1); EOSINOPHILS # (AUTO) 0.1 X10'3 (0-0.9); LYMPHOCYTES # (AUTO) 1.5 X10'3 (1.1-4.8); LYMPHOCYTES % (AUTO) 30.9 % (21-51); MEAN CORPUSCULAR HEMOGLOBIN 30.8 PG (27.0-31.0); MEAN CORPUSCULAR HGB CONC 32.4 g/dL (33.0-36.5); MEAN CORPUSCULAR VOLUME 95.1 FL (78-98); MEAN PLATELET VOLUME 7.2 FL (7.4-10.4); MONOCYTES # (AUTO) 0.4 X10'3 (0-0.9); MONOCYTES % (AUTO) 8.2 % (2-12); NEUTROPHILS # (AUTO) 2.8 X10'3 (1.8-7.7); NEUTROPHILS % (AUTO) 57.7 % (42-75); PRE OP HEMATOCRIT 37.2 % (35.0-45.0); PRE OP HEMOGLOBIN 12.1 g/dL (12.0-16.0); PRE OP PLATELET COUNT 250 X10'3 (140-440); RED BLOOD COUNT 3.91 X10'6 (4.20-5.60); RED CELL DISTRIBUTION WIDTH 14.8 % (11.5-14.5)
[2018-11-17 15:02] LABS: PRE OP PROTIME 10.2 SECONDS (9.0-12.0)
[2018-11-17 15:09] LABS: ALBUMIN 3.8 G/DL (3.4-5.0); ALKALINE PHOSPHATASE 226 IU/L (46-116); BLOOD UREA NITROGEN 8 MG/DL (7-18); BUN/CREATININE RATIO 15.7 (6.6-38.0); CALCIUM 9.9 MG/DL (8.5-10.1); CHLORIDE 106 MMOL/L (99-107); CREATININE 0.51 MG/DL (0.40-0.90); PRE OP ALT 21 U/L (30-65); PRE OP ANION GAP 14 (8-16); PRE OP AST 24 U/L (10-37); PRE OP BILIRUB, TOTAL 0.2 MG/DL (0.0-1.0); PRE OP GLUCOSE 94 MG/DL (70-104); PRE OP POTASSIUM 3.4 MMOL/L (3.4-5.1); PRE OP SODIUM 145 MMOL/L (135-145); TOTAL CARBON DIOXIDE 24.6 MMOL/L (24-32); TOTAL PROTEIN 7.6 G/DL (6.4-8.2); eGFR > 90 ML/MIN
[~2018-11-18] VITALS: Ht 160 cm; Wt 47.0 kg
[~2018-11-18 10:48] MED LIST changes: -BIOT300T2 PO; -CHOL400T14 PO; -DULO-31 PO; +DULO60CA64 PO; +FOLI0.4T14 PO; -FOLI1TAB16 PO; -MIRT15TA PO; +MIRT15TA8 PO; -MULT-1085 PO; +VANCOMYCIN INJ 1000 MG in NORMAL SALINE 250ml IV.SOLN IV ONE; -VITA150T PO; +VITA400C65 PO; -VITAMIN B-1; -VITE1000C PO; +ZONI50CA3 PO; +ceFAZolin 2gm in dextrose, iso 100 ML IV ONE; +famotidine 20mg tablet PO ONE; +ringers solution, lacted 1,000 ML IV SCH
[2018-11-18 13:14] VITALS: BP 136/84
[2018-11-18 13:20] VITALS: BP 136/84
== END 2018-11-18 14:00 | disposition home or self-care (01) | DRG 351 ==
LOC: PAS IN 10:48 → EDSTATUS 14:15
PROVIDERS: ADMIT Orthopaedic Surgery; ATTEND Orthopaedic Surgery
DX: S42.352P Displaced comminuted fracture of shaft of humerus, left arm, subsequent encounter for fracture with malunion (principal); F10.129 Alcohol abuse with intoxication, unspecified; Z53.09 Procedure and treatment not carried out because of other contraindication; Z01.812 Encounter for preprocedural laboratory examination; G40.509 Epileptic seizures related to external causes, not intractable, without status epilepticus; L02.414 Cutaneous abscess of left upper limb; M25.512 Pain in left shoulder; Y92.098 Other place in other non-institutional residence as the place of occurrence of the external cause; W18.39XD Other fall on same level, subsequent encounter; Y93.89 Activity, other specified; Z91.81 History of falling; F32.9 Major depressive disorder, single episode, unspecified
CPT/HCPCS: 36415; 80053; 80320; 82948; 85025; 85610; 85730; 87070; 93005; J0690; J3370; J7120

== ENCOUNTER 2018-11-29 11:23 | Inpatient (IN) | payer MEDICAID ==
[~2018-11-29] VITALS: Ht 160 cm; Wt 47.0 kg
[~2018-11-29 11:23] MED LIST changes: -VANCOMYCIN INJ 1000 MG in NORMAL SALINE 250ml IV.SOLN IV ONE; -ceFAZolin 2gm in dextrose, iso 100 ML IV ONE; -famotidine 20mg tablet PO ONE; -ringers solution, lacted 1,000 ML IV SCH
[2018-11-29] MEDS ORDERED: normal saline 1000ML IV soln IVB ONE (11:40)
[2018-11-29 12:17] LABS: BASOPHILS % (AUTO) 0.1 % (0-1); EOSINOPHILS % (AUTO) 0.3 % (0-6); HEMATOCRIT 39.4 % (35.0-45.0); LYMPHOCYTES # (AUTO) 0.5 X10'3 (1.1-4.8); LYMPHOCYTES % (AUTO) 4.3 % (21-51); MEAN CORPUSCULAR HEMOGLOBIN 30.6 PG (27.0-31.0); MEAN CORPUSCULAR HGB CONC 32.9 g/dL (33.0-36.5); MEAN CORPUSCULAR VOLUME 93.1 FL (78-98); MEAN PLATELET VOLUME 6.8 FL (7.4-10.4); MONOCYTES # (AUTO) 0.2 X10'3 (0-0.9); MONOCYTES % (AUTO) 2.2 % (2-12); NEUTROPHILS # (AUTO) 10.5 X10'3 (1.8-7.7); NEUTROPHILS % (AUTO) 93.1 % (42-75); PLATELET COUNT 248 X10'3 (140-440); RED BLOOD COUNT 4.23 X10'6 (4.20-5.60); RED CELL DISTRIBUTION WIDTH 15.2 % (11.5-14.5); WHITE BLOOD COUNT 11.3 X10'3 (4.5-11.0)
--- NOTE | 2018-11-29 12:18 | NUR ---
SPONTANEOUS MOVT OF LEFT ARM AND LEG NOTED
[2018-11-29 12:34] LABS: PARTIAL THROMBOPLASTIN TIME 24 SECONDS (22-32); PROTHROMBIN TIME 10.2 SECONDS (9.0-12.0)
[2018-11-29 12:39] LABS: ALANINE AMINOTRANSFERASE 33 U/L (12-78); ALBUMIN/GLOBULIN RATIO 1.1 (1.1-1.5); ALKALINE PHOSPHATASE 280 IU/L (46-116); ANION GAP 9 (8-16); ASPARTATE AMINO TRANSFERASE 56 U/L (10-37); BILIRUBIN,TOTAL 0.3 MG/DL (0.1-1.0); BLOOD UREA NITROGEN 9 MG/DL (7-18); CALCIUM 9.7 MG/DL (8.5-10.1); CHLORIDE 102 MMOL/L (99-107); CREATININE 0.82 MG/DL (0.40-0.90); ETHANOL < 0.010 GM/DL (0.0-0.010); GLUCOSE 144 MG/DL (70-104); MAGNESIUM 2.3 MG/DL (1.5-2.4); POTASSIUM 3.3 MMOL/L (3.5-5.1); SODIUM 147 MMOL/L (135-145); TOTAL CARBON DIOXIDE 35.7 MMOL/L (24-32); TOTAL PROTEIN 7.6 G/DL (6.4-8.2); eGFR 73 ML/MIN
[2018-11-29 12:48] LABS: CLARITY,URINE CLEAR (Clear); COLOR,URINE YELLOW (Yellow); GLUCOSE, URINE NEGATIVE (Neg); KETONES,URINE NEGATIVE (Neg); LEUKOCYTE ESTERASE ,URINE NEGATIVE (Neg); NITRITES, URINE NEGATIVE (Neg); OCCULT BLOOD,URINE NEGATIVE (Neg); PROTEIN,URINE NEGATIVE (Neg); UROBILINOGEN,URINE 0.2 E.U/dL (0.2-1.0)
[2018-11-29 12:52] LABS: UA COLLECTION TYPE STRAIGHT CATH
[2018-11-29 12:53] LABS: URINE AMPHETAMINE SCREEN NEGATIVE (Neg); URINE BARBITUATE SCREEN NEGATIVE (Neg); URINE BENZODIAZEPINES SCREEN POSITIVE (Neg); URINE CANNABINOID SCREEN POSITIVE (Neg); URINE COCAINE SCREEN NEGATIVE (Neg); URINE METHADONE SCREEN NEGATIVE (Neg); URINE OPIATE SCREEN NEGATIVE (Neg); URINE PHENCYCLIDINE SCREEN NEGATIVE (Neg)
[2018-11-29 12:58] LABS: LIPASE 78 U/L (73-393)
[2018-11-29] MEDS ORDERED: normal saline 1000ml 1,000 ML IV ONE (13:15)
[2018-11-29] MEDS ORDERED: potassium 10mEq/100ml NS w/LIDOcaine (10mg/bag) IV ONE (14:05)
[2018-11-29] MEDS ORDERED: mag hydrox/Alum hydrox/simeth 30ml oral suspension PO PRN (14:40)
[2018-11-29] MEDS ORDERED: acetaminophen 325mg tablet PO PRN (14:40)
[2018-11-29] MEDS ORDERED: haloperidol 5mg tablet PO PRN (14:40)
[2018-11-29] MEDS ORDERED: LORazepam 2 mg/ml vial IV PRN ×2 (14:40→15:45)
[2018-11-29] MEDS ORDERED: magnesium hydroxide 30ml (MOM) UD suspension PO PRN (14:40)
[2018-11-29] MEDS ORDERED: potassium Cl 20 mEq SR tablet PO PRN (14:40)
[2018-11-29] MEDS ORDERED: ondansetron/PF 4mg/2ml inj IV PRN (14:40)
[2018-11-29] MEDS ORDERED: haloperidol lactate 5mg/ml inj IM PRN (14:40)
[2018-11-29] MEDS ORDERED: thiamine inj. 100 MG in normal saline 100ml IV soln 100 ML IV ONE (14:40)
[2018-11-29] MEDS ORDERED: magnesium Cl slow-release 64mg tablet PO PRN (14:40)
[2018-11-29] MEDS ORDERED: HYDROcodone/acetaminophen 5mg/325mg tablet PO PRN (14:40)
[2018-11-29] MEDS ORDERED: magnesium 2GM in 50ml NS 50 ML IV PRN (14:40)
[2018-11-29] MEDS ORDERED: magnesium 4gm in 100ml NS 100 ML IV PRN (14:40)
[2018-11-29] MEDS ORDERED: potassium Cl 40MEQ/NS 500ml 500 ML IV PRN ×2 (14:40)
--- NOTE | 2018-11-29 15:36 | NUR ---
PATIENT TALKING A FEW WORDS, BUT APPEARS TO BE UNABLE TO ANSWER QUESTIONS LIKE EXPRESSIVE APHASIA PATIENT SITITING WITH EYES OPEN, NOW WILL TRACK WITH EYES PT VERDUZCO: LEFT MORE THAN RIGHT
--- NOTE | 2018-11-29 15:37 | NUR ---
PATIENT UNABLE TO VERBALIZE HOME MEDICATIONS
--- NOTE | 2018-11-29 15:48 | NUR ---
REPORT TO BRIJESH PAYNE, PATIENT TO ROOM 4020A WITH RN ON TELE
[2018-11-29 16:10] VITALS: BP 150/83
[2018-11-29] MEDS: levetiracetam inj 500 MG in normal saline 100ml IV soln 95 ML IV SCH (16:48)
[2018-11-29] MEDS: folic acid inj. 2 MG, thiamine inj. 100 MG, MVI, adult No.4 with vit. K 10 ML in dextro... IV SCH ×4 (17:43)
[2018-11-29 18:00] VITALS: BP 150/83
--- NOTE | 2018-11-29 18:10 | NUR ---
Problems reprioritized. Patient report given, questions answered & plan of care reviewed with DU PAYNE.
--- NOTE | 2018-11-29 18:33 | NUR ---
PATIENT REPORT RECEIVED FROM KATARINA PAYNE.
[2018-11-29] MEDS ORDERED: levetiracetam inj 500 MG in normal saline 100ml IV soln 95 ML IV SCH (20:00)
[2018-11-29] MEDS: potassium Cl 20 mEq SR tablet PO PRN (20:38)
[2018-11-29 22:00] VITALS: BP 129/76
[2018-11-30] MEDS: potassium Cl 20 mEq SR tablet PO PRN (00:44)
[2018-11-30 06:00] VITALS: BP 122/69
--- NOTE | 2018-11-30 06:05 | NUR ---
PATIENT REPORT GIVEN TO ANGEL PAYNE.
--- NOTE | 2018-11-30 06:12 | NUR ---
received report from erendira alcantara rn
--- NOTE | 2018-11-30 06:19 | NUR ---
PATIENT REPORT GIVEN TO ANGEL PAYNE.
[2018-11-30 06:40] LABS: BASOPHILS % (AUTO) 0.4 % (0-1); EOSINOPHILS % (AUTO) 0.6 % (0-6); HEMATOCRIT 34.3 % (35.0-45.0); HEMOGLOBIN 11.3 g/dl (12.0-16.0); LYMPHOCYTES # (AUTO) 0.9 X10'3 (1.1-4.8); LYMPHOCYTES % (AUTO) 18.2 % (21-51); MEAN CORPUSCULAR HEMOGLOBIN 30.6 PG (27.0-31.0); MEAN CORPUSCULAR HGB CONC 32.9 g/dL (33.0-36.5); MEAN PLATELET VOLUME 7.2 FL (7.4-10.4); MONOCYTES # (AUTO) 0.4 X10'3 (0-0.9); MONOCYTES % (AUTO) 8.4 % (2-12); NEUTROPHILS # (AUTO) 3.6 X10'3 (1.8-7.7); NEUTROPHILS % (AUTO) 72.4 % (42-75); PLATELET COUNT 177 X10'3 (140-440); RED BLOOD COUNT 3.69 X10'6 (4.20-5.60); RED CELL DISTRIBUTION WIDTH 15.3 % (11.5-14.5)
[2018-11-30 06:59] LABS: ALANINE AMINOTRANSFERASE 23 U/L (12-78); ALBUMIN 3.2 G/DL (3.4-5.0); ALBUMIN/GLOBULIN RATIO 1.1 (1.1-1.5); ALKALINE PHOSPHATASE 204 IU/L (46-116); AMYLASE 45 U/L (25-115); ANION GAP 8 (8-16); ASPARTATE AMINO TRANSFERASE 34 U/L (10-37); BILIRUBIN,TOTAL 0.7 MG/DL (0.1-1.0); BLOOD UREA NITROGEN 8 MG/DL (7-18); BUN/CREATININE RATIO 11.8 (6.6-38.0); CHLORIDE 101 MMOL/L (99-107); CREATININE 0.68 MG/DL (0.40-0.90); GLUCOSE 87 MG/DL (70-104); LIPASE 63 U/L (73-393); PHOSPHORUS 3.7 MG/DL (2.3-4.5); POTASSIUM 3.6 MMOL/L (3.5-5.1); SODIUM 139 MMOL/L (135-145); TOTAL CARBON DIOXIDE 30.5 MMOL/L (24-32); TOTAL PROTEIN 6.2 G/DL (6.4-8.2); eGFR > 90 ML/MIN
[2018-11-30 07:02] LABS: PROTHROMBIN TIME 10.6 SECONDS (9.0-12.0)
[2018-11-30] MEDS: K and/or MAG REPLACEMENT MC SCH (07:42)
[2018-11-30] MEDS: enoxaparin 40mg/0.4ml syringe SUBCUT SCH (07:46)
[2018-11-30] MEDS: levetiracetam inj 500 MG in normal saline 100ml IV soln 95 ML IV SCH (07:48)
[2018-11-30] MEDS ORDERED: thiamine inj. 100 MG, MVI, adult No.4 with vit. K 10 ML in dextrose 5% water 500ml 489 ML IV SCH ×3 (08:00)
[2018-11-30 10:00] VITALS: BP 112/64
[2018-11-30] MEDS: duloxetine 30mg CAPSULE.DR PO SCH (15:00)
[2018-11-30] MEDS: folic acid inj. 2 MG, thiamine inj. 100 MG, MVI, adult No.4 with vit. K 10 ML in dextro... IV SCH ×4 (15:02)
[2018-11-30 18:00] VITALS: BP 127/70
--- NOTE | 2018-11-30 18:32 | NUR ---
gave report jose daniel mojica
--- NOTE | 2018-11-30 19:26 | NUR ---
REPORT REC'D FROM KERRY ORTIZ.
[2018-11-30] MEDS ORDERED: Levetiracetam-NS 500mg/100ml 100 ML IV SCH (20:00)
[2018-11-30] MEDS: mirtazapine 15mg tablet PO SCH (20:03)
[2018-11-30] MEDS: levetiracetam 250mg tablet PO SCH (20:03)
[2018-11-30 22:00] VITALS: BP 134/71
--- NOTE | 2018-12-01 06:21 | NUR ---
REPORT GIVEN TO KERRY CHAVEZ.
[2018-12-01 06:46] LABS: PROTHROMBIN TIME 10.1 SECONDS (9.0-12.0)
[2018-12-01 06:47] LABS: ALANINE AMINOTRANSFERASE 24 U/L (12-78); ALBUMIN 3.2 G/DL (3.4-5.0); ALKALINE PHOSPHATASE 185 IU/L (46-116); AMYLASE 44 U/L (25-115); ANION GAP 7 (8-16); ASPARTATE AMINO TRANSFERASE 34 U/L (10-37); BILIRUBIN,TOTAL 0.6 MG/DL (0.1-1.0); BLOOD UREA NITROGEN 9 MG/DL (7-18); BUN/CREATININE RATIO 15.8 (6.6-38.0); CALCIUM 9.1 MG/DL (8.5-10.1); CHLORIDE 104 MMOL/L (99-107); CREATININE 0.57 MG/DL (0.40-0.90); GLUCOSE 99 MG/DL (70-104); LIPASE 84 U/L (73-393); MAGNESIUM 2.1 MG/DL (1.5-2.4); PHOSPHORUS 3.5 MG/DL (2.3-4.5); POTASSIUM 3.2 MMOL/L (3.5-5.1); SODIUM 142 MMOL/L (135-145); TOTAL CARBON DIOXIDE 30.8 MMOL/L (24-32); TOTAL PROTEIN 6.5 G/DL (6.4-8.2); eGFR > 90 ML/MIN
[2018-12-01 06:56] LABS: MEAN CORPUSCULAR HGB CONC 32.8 g/dL (33.0-36.5)
[2018-12-01 06:57] LABS: HEMATOCRIT 36.2 % (35.0-45.0); HEMOGLOBIN 11.9 g/dl (12.0-16.0); MEAN CORPUSCULAR HEMOGLOBIN 30.5 PG (27.0-31.0); MEAN PLATELET VOLUME 8.4 FL (7.4-10.4); PLATELET COUNT 165 X10'3 (140-440); RED BLOOD COUNT 3.89 X10'6 (4.20-5.60); RED CELL DISTRIBUTION WIDTH 14.8 % (11.5-14.5)
[2018-12-01 07:09] VITALS: BP 120/75
[2018-12-01] MEDS: vitamin E 400 unit capsule PO SCH (07:24)
[2018-12-01] MEDS: thiamine 100mg tablet PO SCH (07:24)
[2018-12-01] MEDS: folic acid 1mg tablet PO SCH (07:25)
[2018-12-01] MEDS: potassium Cl 20 mEq SR tablet PO PRN (07:25)
[2018-12-01] MEDS: levetiracetam 250mg tablet PO SCH ×2 (07:25→20:05)
[2018-12-01] MEDS: enoxaparin 40mg/0.4ml syringe SUBCUT SCH (07:25)
[2018-12-01] MEDS: duloxetine 30mg CAPSULE.DR PO SCH (07:25)
[2018-12-01] MEDS: multivitamins, therapeutics tablet PO SCH (07:25)
[2018-12-01] MEDS: K and/or MAG REPLACEMENT MC SCH (08:00)
[2018-12-01 08:06] LABS: WHITE BLOOD COUNT 4.6 X10'3 (4.5-11.0)
[2018-12-01 08:10] LABS: TOTAL CELLS COUNTED 100
[2018-12-01 08:11] LABS: LARGE PLATELETS FEW; PLATELET ESTIMATE NORMAL
[2018-12-01] MEDS: carBAMazepine 100mg chewable tablet PO SCH ×2 (10:50→20:05)
[2018-12-01 11:19] VITALS: BP 134/76
[2018-12-01] MEDS ORDERED: LORazepam 1 MG tablet PO PRN (14:40)
[2018-12-01] MEDS ORDERED: LORazepam 2 mg/ml vial IV PRN (14:40)
[2018-12-01 18:00] VITALS: BP 139/92
--- NOTE | 2018-12-01 18:23 | NUR ---
report rec'd from jose daniel Vasquez.
[2018-12-01] MEDS: mirtazapine 15mg tablet PO SCH (20:05)
--- NOTE | 2018-12-01 20:07 | NUR ---
pt has an old healed area on sacral bone that is a pressure point. hydrophilic foam pad dsg applied for prophylaxis.
[2018-12-01 22:00] VITALS: BP 122/71
[2018-12-02 06:00] VITALS: BP 135/77
[2018-12-02 06:17] LABS: BASOPHILS % (AUTO) 0.5 % (0-1); EOSINOPHILS # (AUTO) 0.2 X10'3 (0-0.9); EOSINOPHILS % (AUTO) 5.9 % (0-6); HEMATOCRIT 33.7 % (35.0-45.0); HEMOGLOBIN 11.3 g/dl (12.0-16.0); LYMPHOCYTES # (AUTO) 1.1 X10'3 (1.1-4.8); LYMPHOCYTES % (AUTO) 39.6 % (21-51); MEAN CORPUSCULAR HEMOGLOBIN 30.9 PG (27.0-31.0); MEAN CORPUSCULAR HGB CONC 33.4 g/dL (33.0-36.5); MEAN CORPUSCULAR VOLUME 92.5 FL (78-98); MEAN PLATELET VOLUME 7.6 FL (7.4-10.4); MONOCYTES # (AUTO) 0.2 X10'3 (0-0.9); MONOCYTES % (AUTO) 8.8 % (2-12); NEUTROPHILS # (AUTO) 1.3 X10'3 (1.8-7.7); NEUTROPHILS % (AUTO) 45.2 % (42-75); PLATELET COUNT 156 X10'3 (140-440); RED BLOOD COUNT 3.64 X10'6 (4.20-5.60); RED CELL DISTRIBUTION WIDTH 15.3 % (11.5-14.5); WHITE BLOOD COUNT 2.8 X10'3 (4.5-11.0)
[2018-12-02 06:22] LABS: ALANINE AMINOTRANSFERASE 22 U/L (12-78); ALBUMIN 3.2 G/DL (3.4-5.0); ALKALINE PHOSPHATASE 164 IU/L (46-116); AMYLASE 40 U/L (25-115); ANION GAP 8 (8-16); ASPARTATE AMINO TRANSFERASE 22 U/L (10-37); BILIRUBIN,TOTAL 0.3 MG/DL (0.1-1.0); BLOOD UREA NITROGEN 13 MG/DL (7-18); BUN/CREATININE RATIO 19.4 (6.6-38.0); CALCIUM 9.4 MG/DL (8.5-10.1); CHLORIDE 104 MMOL/L (99-107); CREATININE 0.67 MG/DL (0.40-0.90); GLUCOSE 101 MG/DL (70-104); LIPASE 73 U/L (73-393); PHOSPHORUS 3.9 MG/DL (2.3-4.5); POTASSIUM 3.7 MMOL/L (3.5-5.1); PROTHROMBIN TIME 9.8 SECONDS (9.0-12.0); SODIUM 141 MMOL/L (135-145); TOTAL CARBON DIOXIDE 28.6 MMOL/L (24-32); TOTAL PROTEIN 6.4 G/DL (6.4-8.2); eGFR > 90 ML/MIN
--- NOTE | 2018-12-02 06:23 | NUR ---
REPORT GIVEN TO KERRY CHAVEZ.
--- NOTE | 2018-12-02 07:09 | NUR ---
RECEIVED REPORT FROM LINDA PAYNE
[2018-12-02] MEDS: vitamin E 400 unit capsule PO SCH (07:31)
[2018-12-02] MEDS: folic acid 1mg tablet PO SCH (07:31)
[2018-12-02] MEDS: multivitamins, therapeutics tablet PO SCH (07:31)
[2018-12-02] MEDS: duloxetine 30mg CAPSULE.DR PO SCH (07:32)
[2018-12-02] MEDS: levetiracetam 250mg tablet PO SCH ×2 (07:33→20:08)
[2018-12-02] MEDS: carBAMazepine 100mg chewable tablet PO SCH ×2 (07:34→20:07)
[2018-12-02] MEDS: enoxaparin 40mg/0.4ml syringe SUBCUT SCH (07:36)
[2018-12-02 07:48] LABS: PLATELET ESTIMATE NORMAL; TOTAL CELLS COUNTED 100
[2018-12-02] MEDS: K and/or MAG REPLACEMENT MC SCH (08:00)
[2018-12-02] MEDS: thiamine 100mg tablet PO SCH (08:00)
[2018-12-02 10:00] VITALS: BP 127/70
[2018-12-02 17:00] VITALS: BP 134/84
[2018-12-02] MEDS: mirtazapine 15mg tablet PO SCH (20:07)
[2018-12-03 06:00] VITALS: BP 106/64
--- NOTE | 2018-12-03 06:05 | NUR ---
Patient in room ORTHO 4020. I have received report from YOUNG RN and had the opportunity to ask questions and assume patient care.
[2018-12-03 06:38] LABS: EOSINOPHILS # (AUTO) 0.1 X10'3 (0-0.9); EOSINOPHILS % (AUTO) 5.6 % (0-6); HEMATOCRIT 33.7 % (35.0-45.0); HEMOGLOBIN 11.1 g/dl (12.0-16.0); LYMPHOCYTES % (AUTO) 40.7 % (21-51); MEAN CORPUSCULAR HEMOGLOBIN 30.9 PG (27.0-31.0); MEAN CORPUSCULAR HGB CONC 32.8 g/dL (33.0-36.5); MEAN CORPUSCULAR VOLUME 94.1 FL (78-98); MEAN PLATELET VOLUME 7.7 FL (7.4-10.4); MONOCYTES # (AUTO) 0.3 X10'3 (0-0.9); MONOCYTES % (AUTO) 10.5 % (2-12); NEUTROPHILS # (AUTO) 1.1 X10'3 (1.8-7.7); NEUTROPHILS % (AUTO) 42.2 % (42-75); PLATELET COUNT 162 X10'3 (140-440); RED BLOOD COUNT 3.58 X10'6 (4.20-5.60); WHITE BLOOD COUNT 2.5 X10'3 (4.5-11.0)
[2018-12-03 06:44] LABS: PROTHROMBIN TIME 9.9 SECONDS (9.0-12.0)
[2018-12-03 06:47] LABS: ALANINE AMINOTRANSFERASE 24 U/L (12-78); ALBUMIN 3.3 G/DL (3.4-5.0); ALKALINE PHOSPHATASE 162 IU/L (46-116); AMYLASE 45 U/L (25-115); ANION GAP 7 (8-16); ASPARTATE AMINO TRANSFERASE 28 U/L (10-37); BILIRUBIN,TOTAL 0.3 MG/DL (0.1-1.0); BLOOD UREA NITROGEN 13 MG/DL (7-18); CALCIUM 9.4 MG/DL (8.5-10.1); CHLORIDE 105 MMOL/L (99-107); CREATININE 0.62 MG/DL (0.40-0.90); GLUCOSE 95 MG/DL (70-104); LIPASE 74 U/L (73-393); MAGNESIUM 1.8 MG/DL (1.5-2.4); PHOSPHORUS 4.4 MG/DL (2.3-4.5); POTASSIUM 3.7 MMOL/L (3.5-5.1); SODIUM 142 MMOL/L (135-145); TOTAL CARBON DIOXIDE 29.6 MMOL/L (24-32); TOTAL PROTEIN 6.5 G/DL (6.4-8.2); eGFR > 90 ML/MIN
[2018-12-03 07:55] LABS: PLATELET ESTIMATE NORMAL; TOTAL CELLS COUNTED 100
[2018-12-03] MEDS: K and/or MAG REPLACEMENT MC SCH (08:00)
[2018-12-03] MEDS: thiamine 100mg tablet PO SCH (08:44)
[2018-12-03] MEDS: vitamin E 400 unit capsule PO SCH (08:44)
[2018-12-03] MEDS: duloxetine 30mg CAPSULE.DR PO SCH (08:44)
[2018-12-03] MEDS: enoxaparin 40mg/0.4ml syringe SUBCUT SCH (08:44)
[2018-12-03] MEDS: carBAMazepine 100mg chewable tablet PO SCH (08:44)
[2018-12-03] MEDS: folic acid 1mg tablet PO SCH (08:44)
[2018-12-03] MEDS: levetiracetam 250mg tablet PO SCH (08:44)
[2018-12-03] MEDS: multivitamins, therapeutics tablet PO SCH (08:44)
[2018-12-03 10:00] VITALS: BP 119/74
[2018-12-03] MEDS ORDERED: CARB200T8 PO (11:46)
[2018-12-03] MEDS ORDERED: LORazepam 1 MG tablet PO PRN (14:40)
[2018-12-03] MEDS ORDERED: LORazepam 2 mg/ml vial IV PRN (14:40)
== END 2018-12-03 13:25 | disposition home or self-care (01) | DRG 53 ==
LOC: ER 11:24 → ED HOLD 14:38 → EDBEDREQ 15:40 → ORTHO 4S 16:28
PROVIDERS: ADMIT Internal Medicine; ATTEND Family Medicine
DX: G40.901 Epilepsy, unspecified, not intractable, with status epilepticus (principal); E87.1 Hypo-osmolality and hyponatremia; D63.8 Anemia in other chronic diseases classified elsewhere; E87.6 Hypokalemia; R47.01 Aphasia; F10.20 Alcohol dependence, uncomplicated; Z87.820 Personal history of traumatic brain injury; Z79.899 Other long term (current) drug therapy
CPT/HCPCS: 36415; 70450; 70551; 71045; 80053; 80305; 80320; 81003; 82140; 82150; 82948; 83605; 83690; 83735; 84100; 84484; 85025; 85610; 85730; 87040; 87070; 93005; 96365; 97162; 97530; 99285; G0378; J1650; J1953; J2060; J2405; J3411; J3480; J3490; J7030; J7060

== ENCOUNTER 2019-01-16 09:59 | Emergency (ER) | payer MEDICAID ==
[~2019-01-16] VITALS: Ht 162.6 cm; Wt 52.3 kg
[~2019-01-16 09:59] MED LIST changes: +CARB200T8 PO; -FOLI0.4T14 PO; -ZONI50CA3 PO
[2019-01-16] MEDS ORDERED: normal saline 1000ML IV soln IVB ONE (10:25)
[2019-01-16 11:13] LABS: BASOPHILS % (AUTO) 0.5 % (0-1); EOSINOPHILS # (AUTO) 0.1 X10'3 (0-0.9); EOSINOPHILS % (AUTO) 1.2 % (0-6); HEMATOCRIT 40.1 % (35.0-45.0); HEMOGLOBIN 13.1 g/dl (12.0-16.0); LYMPHOCYTES % (AUTO) 17.2 % (21-51); MEAN CORPUSCULAR HGB CONC 32.8 g/dL (33.0-36.5); MEAN CORPUSCULAR VOLUME 97.8 FL (78-98); MEAN PLATELET VOLUME 7.4 FL (7.4-10.4); MONOCYTES # (AUTO) 0.4 X10'3 (0-0.9); MONOCYTES % (AUTO) 7.5 % (2-12); NEUTROPHILS # (AUTO) 4.2 X10'3 (1.8-7.7); NEUTROPHILS % (AUTO) 73.6 % (42-75); PLATELET COUNT 236 X10'3 (140-440); RED CELL DISTRIBUTION WIDTH 17.6 % (11.5-14.5); WHITE BLOOD COUNT 5.6 X10'3 (4.5-11.0)
[2019-01-16 11:20] LABS: ALANINE AMINOTRANSFERASE 22 U/L (12-78); ALBUMIN 3.5 G/DL (3.4-5.0); ALKALINE PHOSPHATASE 182 IU/L (46-116); ANION GAP 9 (8-16); ASPARTATE AMINO TRANSFERASE 26 U/L (10-37); BILIRUBIN,TOTAL 0.2 MG/DL (0.1-1.0); BLOOD UREA NITROGEN 9 MG/DL (7-18); BUN/CREATININE RATIO 13.4 (6.6-38.0); CALCIUM 9.3 MG/DL (8.5-10.1); CHLORIDE 107 MMOL/L (99-107); CREATININE 0.67 MG/DL (0.40-0.90); ETHANOL 0.071 GM/DL (0.0-0.010); GLUCOSE 77 MG/DL (70-104); PARTIAL THROMBOPLASTIN TIME 23 SECONDS (22-32); POTASSIUM 3.3 MMOL/L (3.5-5.1); SODIUM 144 MMOL/L (135-145); TOTAL CARBON DIOXIDE 28.2 MMOL/L (24-32); eGFR > 90 ML/MIN
[2019-01-16] MEDS ORDERED: ringers solution, lacted 1,000 ML IV ONE (11:22)
[2019-01-16] MEDS ORDERED: tetanus & diphtheria toxoid (Td) vaccine 0.5ml IMVAC ONE (12:00)
[2019-01-16] MEDS ORDERED: TETanus/Pertussis (Acell)/Diphther VAC/PF (Tdap-Adult) 0.5ml syringe IMVAC ONE (12:20)
[2019-01-16 13:06] LABS: CLARITY,URINE SLIGHTLY CLOUDY (Clear); COLOR,URINE YELLOW (Yellow); GLUCOSE, URINE NEGATIVE (Neg); KETONES,URINE NEGATIVE (Neg); LEUKOCYTE ESTERASE ,URINE LARGE (Neg); NITRITES, URINE NEGATIVE (Neg); OCCULT BLOOD,URINE TRACE-INTACT (Neg); PH,URINE 7.5 (4.8-8.0); PROTEIN,URINE NEGATIVE (Neg); UROBILINOGEN,URINE 0.2 E.U/dL (0.2-1.0)
[2019-01-16 13:11] LABS: UA COLLECTION TYPE CLN CATCH MIDSTREAM
[2019-01-16 13:19] LABS: BACTERIA,URINE 3+ /HPF (Neg); SQUAMOUS EPITHELIAL CELL,UR MODERATE /LPF (FEW); WBC,URINE TNTC /HPF (0-4)
[2019-01-16 13:20] LABS: MUCUS STRANDS NONE SEEN /LPF (Neg); RENAL CELLS, URINE MODERATE /HPF; WBC CLUMPS,URINE MODERATE /HPF (NEGATIVE)
[2019-01-16 13:21] LABS: URINE AMPHETAMINE SCREEN NEGATIVE (Neg); URINE BARBITUATE SCREEN NEGATIVE (Neg); URINE BENZODIAZEPINES SCREEN POSITIVE (Neg); URINE CANNABINOID SCREEN POSITIVE (Neg); URINE COCAINE SCREEN NEGATIVE (Neg); URINE METHADONE SCREEN NEGATIVE (Neg); URINE OPIATE SCREEN NEGATIVE (Neg); URINE PHENCYCLIDINE SCREEN NEGATIVE (Neg)
[2019-01-16] MEDS ORDERED: fentaNYL/PF 50MCG/1 ML 2ML syringe IV ONE (15:00)
--- NOTE | 2019-01-16 18:05 | NUR ---
FRIEND HERE WITH PT. PT EATING DINNER
[2019-01-16 18:30] VITALS: BP 146/79
[2019-01-16] MEDS ORDERED: HYDROcodone/acetaminophen 5mg/325mg tablet PO ONE (19:05)
--- NOTE | 2019-01-16 20:49 | NUR ---
CALLED REPORT TO KIMBERLY AT [facility]
== END 2019-01-16 19:10 | disposition short-term general hospital (02) ==
LOC: ER 09:59
DX: T21.21XA Burn of second degree of chest wall, initial encounter (principal); T22.211A Burn of second degree of right forearm, initial encounter; T22.20XA Burn of second degree of shoulder and upper limb, except wrist and hand, unspecified site, initial encounter; T22.251A Burn of second degree of right shoulder, initial encounter; T31.11 Burns involving 10-19% of body surface with 10-19% third degree burns; R41.82 Altered mental status, unspecified; R79.1 Abnormal coagulation profile; R41.0 Disorientation, unspecified; X15.0XXA Contact with hot stove (kitchen), initial encounter; Y93.89 Activity, other specified; Y92.099 Unspecified place in other non-institutional residence as the place of occurrence of the external cause; Y99.8 Other external cause status
CPT/HCPCS: 36415; 71045; 80053; 80305; 80320; 81001; 85025; 85610; 85730; 87077; 87088; 87186; 90471; 90715; 96361; 96374; 99285; J3010; J7030; J7120

== ENCOUNTER 2019-03-11 08:59 | Day surgery (SDC) | payer MEDICAID ==
[~2019-03-11 08:59] MED LIST changes: -DULO60CA64 PO; +DULO60CA65 PO; +HYDR-3965 PO
[2019-03-11] MEDS ORDERED: LIDOcaine/PRILOcaine 5gm cream TP ONE ×2 (09:27)
[2019-03-11] MEDS ORDERED: silver sulfadiazine cream 50gm TP ONE (10:40)
--- NOTE | 2019-03-11 11:15 | NUR ---
Patient ambulated independently from [facility] and was admitted to outpatient wound care for physician visit with Jackson Bacon MD. Wound cleansed and Emla cream applied per order. New patient assessment completed with review of patient's medical history and current medications and allergies. Of note, most of this information is obtained from the patient's medical records at this hospital as patient is an extremely poor historian but is able to state her name and date of . 1030 - Dr. Bacon at bedside accompanied by RN. Wound assessed, time out performed by MD/RN. Wound debrided as detailed in the physician progress/procedure note. Plan of care discussed with patient. Dressings placed per MD orders. Patient instructed on the signs and symptoms of infection and to call the Wound Center if any occur or to go to the ED if we are closed: Increased pain in wound Increase in drainage from the wound Redness in the skin surrounding the wound Bleeding from the wound Temperature of 101 or greater Patient instructed that the weight of their body puts a large amount of pressure on their wounds. This pressure keeps the new tissue from growing and inhibits new blood vessels from forming. Explained that, if they continue to bear weight on a body part that has a wound, the time it takes to heal the wound increases, the wound may get worse or the wound may not heal at all. Patient verbalized understanding of all discharge instructions and plan of care and ambulated independently out to [facility] in stable condition with no sign or symptom of distress at time of discharge.
== END 2019-03-11 10:55 | disposition home or self-care (01) ==
LOC: WOUND CARE 08:59
PROVIDERS: ATTEND Surgery
DX: T22.352A Burn of third degree of left shoulder, initial encounter (principal); T31.11 Burns involving 10-19% of body surface with 10-19% third degree burns; S41.002A Unspecified open wound of left shoulder, initial encounter; F32.9 Major depressive disorder, single episode, unspecified; F41.9 Anxiety disorder, unspecified; Z79.899 Other long term (current) drug therapy; Z98.890 Other specified postprocedural states; X08.8XXA Exposure to other specified smoke, fire and flames, initial encounter; Y93.89 Activity, other specified; Y92.89 Other specified places as the place of occurrence of the external cause; Y99.8 Other external cause status
CPT/HCPCS: 97597; 97598; A6223

== ENCOUNTER 2019-03-16 09:28 | Day surgery (SDC) | payer MEDICAID ==
[2019-03-16] MEDS ORDERED: LIDOcaine/PRILOcaine 5gm cream TP ONE (10:20)
--- NOTE | 2019-03-16 11:15 | NUR ---
Patient ambulated independently from [facility] accompanied by friend and was admitted to outpatient wound care for physician visit with Jackson Bacon MD. Dressing removed, wound cleansed and Emla cream applied per order. Patient assessed for changes in conditions, medications and medical history. 1040 - Dr. Bacon at bedside accompanied by RN. Wound assessed, time out performed by MD/RN. Wound debrided as detailed in the physician progress/procedure note. Plan of care discussed with patient. Dressings placed per MD orders. Patient instructed on the signs and symptoms of infection and to call the Wound Center if any occur or to go to the ED if we are closed: Increased pain in wound Increase in drainage from the wound Redness in the skin surrounding the wound Bleeding from the wound Temperature of 101 or greater Patient instructed that the weight of their body puts a large amount of pressure on their wounds. This pressure keeps the new tissue from growing and inhibits new blood vessels from forming. Explained that, if they continue to bear weight on a body part that has a wound, the time it takes to heal the wound increases, the wound may get worse or the wound may not heal at all. Patient verbalized understanding of all discharge instructions and plan of care and ambulated independently accompanied by her friend out to [facility] in stable condition with no sign or symptom of distress at time of discharge.
[2019-03-16] MEDS ORDERED: silver sulfadiazine cream 50gm TP ONE (11:18)
[2019-03-16] MEDS ORDERED: COLL30OI TP (15:36)
== END 2019-03-16 11:36 | disposition home or self-care (01) ==
LOC: WOUND CARE 09:28
PROVIDERS: ATTEND Surgery
DX: T22.352D Burn of third degree of left shoulder, subsequent encounter (principal); T31.11 Burns involving 10-19% of body surface with 10-19% third degree burns; S41.002D Unspecified open wound of left shoulder, subsequent encounter; F32.9 Major depressive disorder, single episode, unspecified; F41.9 Anxiety disorder, unspecified; Z79.899 Other long term (current) drug therapy; Z98.890 Other specified postprocedural states; X08.8XXD Exposure to other specified smoke, fire and flames, subsequent encounter
CPT/HCPCS: 97597; A6223; 97598; A4663

== ENCOUNTER 2019-03-23 09:48 | Outpatient (CLI) | payer MEDICAID ==
[~2019-03-23 09:48] MED LIST changes: +COLL30OI TP
[2019-03-23] MEDS ORDERED: silver sulfadiazine cream 50gm TP ONE (10:21)
--- NOTE | 2019-03-23 14:39 | NUR ---
Patient ambulated independently from [facility] and was admitted to outpatient wound care for physician visit. Dressings removed, wound cleansed. Patient assessment completed with review of patient's medical history and current medications. 1020-Dr. Bacon at bedside accompanied by RN. Wound assessed, time-out performed by MD/RN. Wound debrided as detailed in the physician progress/procedure note. Plan of care discussed with patient. Dressings placed per MD orders. Patient instructed on the signs and symptoms of infection and to call the Wound Center if any occur or to go to the ED if we are closed: Increased pain in the wound Increase in drainage from the wound Redness in the skin surrounding the wound Bleeding from the wound Temperature of 101F or greater Patient instructed that the weight of their body puts a large amount of pressure on their wounds. This pressure keeps the new tissue from growing and inhibits new blood vessels from forming. Explained that, if they continue to bear weight on a body part that has a wound, the time it takes to heal the wound increases, the wound may get worse, or the wound may not heal at all. Patient verbalized understanding of all discharge instructions and plan of care. Patient ambulated independently out to [facility] in stable condition with no signs or symptoms of distress at time of discharge.
== END 2019-03-23 10:30 | disposition home or self-care (01) ==
LOC: WOUND CARE 09:48 → EDSTATUS 10:00 → WOUND CARE 10:30
PROVIDERS: ATTEND Surgery
DX: T22.352D Burn of third degree of left shoulder, subsequent encounter (principal); T31.11 Burns involving 10-19% of body surface with 10-19% third degree burns; F32.9 Major depressive disorder, single episode, unspecified; F41.9 Anxiety disorder, unspecified; Z79.899 Other long term (current) drug therapy; Z98.890 Other specified postprocedural states; X08.8XXD Exposure to other specified smoke, fire and flames, subsequent encounter
CPT/HCPCS: A4663; A6154; G0463

== ENCOUNTER 2019-03-30 09:47 | Day surgery (SDC) | payer MEDICAID ==
[~2019-03-30 09:47] MED LIST changes: -HYDR-3965 PO
[2019-03-30] MEDS ORDERED: LIDOcaine 2% 5ml jelly ONE (10:27)
[2019-03-30] MEDS ORDERED: silver sulfadiazine cream 50gm TP ONE (10:32)
--- NOTE | 2019-03-30 14:20 | NUR ---
Patient ambulated independently from [facility] and was admitted to outpatient wound care for physician visit. Dressings removed, wound cleansed. Patient assessment completed with review of patient's medical history and current medications. 1033-Dr. Bacon at bedside accompanied by RN. Wound assessed, time-out performed by MD/RN. Wound debrided as detailed in the physician progress/procedure note. Plan of care discussed with patient. Dressings placed per MD orders. Patient instructed on the signs and symptoms of infection and to call the Wound Center if any occur or to go to the ED if we are closed: Increased pain in the wound Increase in drainage from the wound Redness in the skin surrounding the wound Bleeding from the wound Temperature of 101F or greater Patient instructed that the weight of their body puts a large amount of pressure on their wounds. This pressure keeps the new tissue from growing and inhibits new blood vessels from forming. Explained that, if they continue to bear weight on a body part that has a wound, the time it takes to heal the wound increases, the wound may get worse, or the wound may not heal at all. Patient verbalized understanding of all discharge instructions and plan of care. Patient ambulated independently out to [facility] in stable condition with no signs or symptoms of distress at time of discharge.
== END 2019-03-30 10:40 | disposition home or self-care (01) ==
LOC: WOUND CARE 09:47
PROVIDERS: ATTEND Surgery
DX: T22.352D Burn of third degree of left shoulder, subsequent encounter (principal); T31.11 Burns involving 10-19% of body surface with 10-19% third degree burns; F32.9 Major depressive disorder, single episode, unspecified; F41.9 Anxiety disorder, unspecified; Z79.899 Other long term (current) drug therapy; Z98.890 Other specified postprocedural states; X08.8XXD Exposure to other specified smoke, fire and flames, subsequent encounter
CPT/HCPCS: 16020; A6222; 97597; A4663; A6021

== ENCOUNTER 2019-04-03 16:46 | Inpatient (IN) | payer MEDICAID ==
[~2019-04-03] VITALS: Ht 160 cm; Wt 63.6 kg
[~2019-04-03 16:46] MED LIST changes: +propofol 1000mg/100ml bottle 100 ML IV SCH
[2019-04-03] MEDS ORDERED: FOSphenytoin 500mg inj. 1,000 MG in normal saline 100ml IV soln 80 ML IV ONE (16:50)
[2019-04-03] MEDS ORDERED: normal saline 1000ML IV soln IVB ONE ×2 (16:50→20:05)
[2019-04-03 17:39] LABS: CLARITY,URINE CLEAR (Clear); COLOR,URINE YELLOW (Yellow); GLUCOSE, URINE NEGATIVE (Neg); KETONES,URINE 15 mg/dl (Neg); LEUKOCYTE ESTERASE ,URINE NEGATIVE (Neg); NITRITES, URINE NEGATIVE (Neg); OCCULT BLOOD,URINE NEGATIVE (Neg); PROTEIN,URINE 30 mg/dl (Neg)
[2019-04-03 17:41] LABS: BASOPHILS % (AUTO) 0.6 % (0-1); EOSINOPHILS % (AUTO) 0.2 % (0-6); HEMATOCRIT 37.8 % (35.0-45.0); HEMOGLOBIN 12.1 g/dl (12.0-16.0); LYMPHOCYTES # (AUTO) 0.9 X10'3 (1.1-4.8); LYMPHOCYTES % (AUTO) 15.4 % (21-51); MEAN CORPUSCULAR HEMOGLOBIN 28.4 PG (27.0-31.0); MEAN CORPUSCULAR HGB CONC 32.1 g/dL (33.0-36.5); MEAN CORPUSCULAR VOLUME 88.3 FL (78-98); MEAN PLATELET VOLUME 7.7 FL (7.4-10.4); MONOCYTES # (AUTO) 0.3 X10'3 (0-0.9); NEUTROPHILS # (AUTO) 4.8 X10'3 (1.8-7.7); NEUTROPHILS % (AUTO) 78.8 % (42-75); PLATELET COUNT 262 X10'3 (140-440); RED BLOOD COUNT 4.28 X10'6 (4.20-5.60); RED CELL DISTRIBUTION WIDTH 18.9 % (11.5-14.5); WHITE BLOOD COUNT 6.1 X10'3 (4.5-11.0)
[2019-04-03 17:47] LABS: UA COLLECTION TYPE STRAIGHT CATH
[2019-04-03 17:48] LABS: BACTERIA,URINE NONE SEEN /HPF (Neg); MUCUS STRANDS FEW /LPF (Neg); RBC,URINE NONE SEEN /HPF (0-2); SQUAMOUS EPITHELIAL CELL,UR NONE SEEN /LPF (FEW); URINE AMPHETAMINE SCREEN NEGATIVE (Neg); URINE BARBITUATE SCREEN NEGATIVE (Neg); URINE BENZODIAZEPINES SCREEN POSITIVE (Neg); URINE CANNABINOID SCREEN POSITIVE (Neg); URINE COCAINE SCREEN NEGATIVE (Neg); URINE METHADONE SCREEN NEGATIVE (Neg); URINE OPIATE SCREEN NEGATIVE (Neg); URINE PHENCYCLIDINE SCREEN NEGATIVE (Neg); WBC,URINE NONE SEEN /HPF (0-4)
[2019-04-03 17:49] LABS: ALANINE AMINOTRANSFERASE 27 U/L (12-78); ALBUMIN/GLOBULIN RATIO 1.1 (1.1-1.5); ALKALINE PHOSPHATASE 175 IU/L (46-116); ANION GAP 14 (8-16); ASPARTATE AMINO TRANSFERASE 33 U/L (10-37); BILIRUBIN,TOTAL 0.4 MG/DL (0.1-1.0); BLOOD UREA NITROGEN 8 MG/DL (7-18); BUN/CREATININE RATIO 8.5 (6.6-38.0); CALCIUM 9.4 MG/DL (8.5-10.1); CHLORIDE 99 MMOL/L (99-107); CREATININE 0.94 MG/DL (0.40-0.90); GLUCOSE 237 MG/DL (70-104); POTASSIUM 4.1 MMOL/L (3.5-5.1); SODIUM 137 MMOL/L (135-145); TOTAL CARBON DIOXIDE 23.6 MMOL/L (24-32); TOTAL PROTEIN 7.5 G/DL (6.4-8.2); eGFR 63 ML/MIN
[2019-04-03 17:51] LABS: ETHANOL < 0.010 GM/DL (0.0-0.010)
[2019-04-03 17:54] LABS: PARTIAL THROMBOPLASTIN TIME 24 SECONDS (22-32)
--- NOTE | 2019-04-03 18:09 | NUR ---
Kelvin garsia in [facility] - 04/03/19 at 1809 by HANNAH DAVEY ARRIETA HAS BEEN CONSULTED
[2019-04-03] MEDS ORDERED: thiamine inj. 100 MG in normal saline 100ml IV soln 100 ML IV ONE (18:15)
[2019-04-03] MEDS ORDERED: haloperidol lactate 5mg/ml inj IM PRN (18:15)
[2019-04-03] MEDS ORDERED: mag hydrox/Alum hydrox/simeth 30ml oral suspension PO PRN (18:15)
[2019-04-03] MEDS ORDERED: potassium Cl 20 mEq SR tablet PO PRN (18:15)
[2019-04-03] MEDS ORDERED: magnesium 2GM in 50ml NS 50 ML IV PRN (18:15)
[2019-04-03] MEDS ORDERED: ondansetron/PF 4mg/2ml inj IV PRN (18:15)
[2019-04-03] MEDS ORDERED: magnesium Cl slow-release 64mg tablet PO PRN (18:15)
[2019-04-03] MEDS ORDERED: LORazepam 2 mg/ml vial IV PRN (18:15)
[2019-04-03] MEDS ORDERED: magnesium 4gm in 100ml NS 100 ML IV PRN (18:15)
[2019-04-03] MEDS ORDERED: acetaminophen 325mg tablet PO PRN (18:15)
[2019-04-03] MEDS ORDERED: potassium CL 10mEq/100ml bag 100 ML IV PRN (18:15)
[2019-04-03] MEDS ORDERED: thiamine 100mg/ml 2ml inj. IV ONE (18:24)
[2019-04-03] MEDS ORDERED: DULO30CA52 PO (19:06)
[2019-04-03] MEDS ORDERED: LEVE750T6 PO (19:07)
[2019-04-03] MEDS ORDERED: BIOT10TA4 PO (19:10)
[2019-04-03] MEDS ORDERED: VITA1CAP19 PO (19:13)
[2019-04-03] MEDS ORDERED: THIA100T70 PO (19:13)
[2019-04-03] MEDS ORDERED: FOLI1TAB16 PO (19:14)
--- NOTE | 2019-04-03 19:20 | NUR ---
WAS INFORMED BY MARIIA PAYNE THAT THE PATIENT HAD VOMITED. FULL LINEN CHANGE. TOOK HER TEMPERATURE AND IT IS ELEVATED.
[2019-04-03] MEDS ORDERED: acetaminophen 650mg rectal suppository RC STA (19:22)
--- NOTE | 2019-04-03 19:23 | NUR ---
SPOKE WITH DR MURRELL WHOM WAS ROUNDING ABOUT THE INCIDENT. HE INFORMED ME TO OBTAIN BLOOD CULTURES AND CALL [facility].
[2019-04-03] MEDS: thiamine inj. 100 MG, folic acid inj. 2 MG in normal saline 100ml IV soln 99 ML IV SCH (19:30)
[2019-04-03] MEDS: MVI, adult No.4 with vit. K 10 ML in dextrose 5% water 500ml 500 ML IV SCH ×2 (19:30)
--- NOTE | 2019-04-03 19:41 | NUR ---
THE HOSPITALIST HAS BEEN PAGED BUT NO RESPONSE
[2019-04-03] MEDS ORDERED: clindamycin 600mg/D5W 50ml 50 ML IV ONE (19:55)
--- NOTE | 2019-04-03 19:55 | NUR ---
DR GASTON MADE AWARE THAT HOSPITALIST HASN'T CALLED ME BACK YET, HE SAID HE WOULD ORDER ANTIBIOTICS.
[2019-04-03] MEDS: levetiracetam-NS 1000mg/100ml 100 ML IV SCH (20:24)
--- NOTE | 2019-04-03 20:27 | NUR ---
PATIENT HAS SCARRING TO HER SHOULDERS AND BACK: SCAB TO ANTERIOR LEFT SHOULDER; RIGHT SHOULDER APPEARS FAIRLY WELL HEALED BUT CRACKING OPEN A LINEAR WOUND ATTEMPTED TO CALL REPORT TO PCU; KERRY CHANEY WILL CALL BACK: SHE IS PASSING MEDS AT THIS TIME
[2019-04-03] MEDS: carBAMazepine 100mg chewable tablet PO SCH (20:30)
--- NOTE | 2019-04-03 20:50 | NUR ---
Obtained report from KERRY Jc in ER.
--- NOTE | 2019-04-03 21:00 | NUR ---
Patient [place], transferred to bed, MRSA swab complete, attempted DART completion w/ caregiver Israel. Patient hooked up to ekg monitor, abx started per md order, multivitamin bag running per md order, placed on NPO status, need 2 RN skin check and pictures, will attempt to complete before end of shift.
[2019-04-03 21:21] VITALS: BP 120/63
[2019-04-03 23:00] VITALS: BP 113/61
--- NOTE | 2019-04-03 23:30 | NUR ---
Patient had temperature of 101.5, tylenol administered, will re-check.
[2019-04-03] MEDS ORDERED: diphenhydrAMINE 25mg capsule PO PRN (23:45)
--- NOTE | 2019-04-03 23:58 | NUR ---
Patient face seems to be swelling as well as lips. Called [facility] and obtained order for benadryl, will continue to monitor.
[2019-04-04] VITALS (7 sets, daily range): BP systolic 89–147; BP diastolic 56–85
[2019-04-04 05:15] LABS: BASOPHILS % (AUTO) 0.6 % (0-1); EOSINOPHILS % (AUTO) 0 % (0-6); HEMATOCRIT 32.5 % (35.0-45.0); HEMOGLOBIN 10.7 g/dl (12.0-16.0); LYMPHOCYTES # (AUTO) 1.7 X10'3 (1.1-4.8); LYMPHOCYTES % (AUTO) 22.4 % (21-51); MEAN CORPUSCULAR HEMOGLOBIN 28.6 PG (27.0-31.0); MEAN CORPUSCULAR HGB CONC 32.9 g/dL (33.0-36.5); MEAN CORPUSCULAR VOLUME 86.9 FL (78-98); MEAN PLATELET VOLUME 7.8 FL (7.4-10.4); MONOCYTES # (AUTO) 0.7 X10'3 (0-0.9); MONOCYTES % (AUTO) 9.3 % (2-12); NEUTROPHILS # (AUTO) 5.2 X10'3 (1.8-7.7); NEUTROPHILS % (AUTO) 67.7 % (42-75); PLATELET COUNT 240 X10'3 (140-440); RED BLOOD COUNT 3.74 X10'6 (4.20-5.60); RED CELL DISTRIBUTION WIDTH 18.9 % (11.5-14.5); WHITE BLOOD COUNT 7.7 X10'3 (4.5-11.0)
[2019-04-04 05:33] LABS: ALANINE AMINOTRANSFERASE 21 U/L (12-78); ALBUMIN 3.4 G/DL (3.4-5.0); ALBUMIN/GLOBULIN RATIO 1.1 (1.1-1.5); ALKALINE PHOSPHATASE 140 IU/L (46-116); AMYLASE 46 U/L (25-115); ANION GAP 12 (8-16); ASPARTATE AMINO TRANSFERASE 15 U/L (10-37); BILIRUBIN,TOTAL 0.5 MG/DL (0.1-1.0); BLOOD UREA NITROGEN 5 MG/DL (7-18); BUN/CREATININE RATIO 9.6 (6.6-38.0); CALCIUM 8.8 MG/DL (8.5-10.1); CHLORIDE 102 MMOL/L (99-107); CREATININE 0.52 MG/DL (0.40-0.90); GLUCOSE 89 MG/DL (70-104); LIPASE 60 U/L (73-393); MAGNESIUM 1.7 MG/DL (1.5-2.4); PHOSPHORUS 3.6 MG/DL (2.3-4.5); POTASSIUM 3.3 MMOL/L (3.5-5.1); SODIUM 139 MMOL/L (135-145); TOTAL CARBON DIOXIDE 25.1 MMOL/L (24-32); TOTAL PROTEIN 6.5 G/DL (6.4-8.2); eGFR > 90 ML/MIN
--- NOTE | 2019-04-04 06:23 | NUR ---
Problems reprioritized. Patient report given, questions answered & plan of care reviewed with KERRY Kaminski.
--- NOTE | 2019-04-04 06:29 | NUR ---
Patient in room PCU 3015. I have received report from KERRY Clayton and had the opportunity to ask questions and assume patient care.
[2019-04-04] MEDS: K and/or MAG REPLACEMENT MC SCH (07:01)
[2019-04-04] MEDS: carBAMazepine 100mg chewable tablet PO SCH ×2 (07:09→21:28)
[2019-04-04] MEDS: levetiracetam-NS 1000mg/100ml 100 ML IV SCH (07:10)
[2019-04-04] MEDS: LORazepam 2 mg/ml vial IV PRN ×2 (07:13→13:26)
[2019-04-04] MEDS: potassium CL 10mEq/100ml bag 100 ML IV PRN ×4 (09:13→16:43)
--- NOTE | 2019-04-04 11:23 | NUR ---
PAGER ID: [phone] MESSAGE: [id number] Gabriela Ruff took all her IV's and we have been unsuccessful in getting a new one after several attempts. KERRY Manzano Ext [phone]
--- NOTE | 2019-04-04 17:16 | NUR ---
PAGER ID: [phone] MESSAGE: [id number] VIOLETA FELL TO GROUND HITTING HER HEAD ON WALL. SMALL OPEN AREA TO [facility]. V[facility] Addendum: 04/04/19 at 1717 by Jocelyne Vences RN Amended: Links added.
--- NOTE | 2019-04-04 18:06 | NUR ---
Problems reprioritized. Patient report given, questions answered & plan of care reviewed with KERRY Clayton.
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
--- NOTE | 2019-04-04 18:31 | NUR ---
Patient in room PCU 3015. I have received report from KERRY Kaminski and had the opportunity to ask questions and assume patient care.
[2019-04-04] MEDS: thiamine inj. 100 MG, folic acid inj. 2 MG in normal saline 100ml IV soln 99 ML IV SCH (19:09)
[2019-04-04] MEDS: MVI, adult No.4 with vit. K 10 ML in dextrose 5% water 500ml 500 ML IV SCH ×2 (19:10)
[2019-04-04] MEDS: levetiracetam 250mg tablet PO SCH (21:28)
[2019-04-04] MEDS: mirtazapine 15mg tablet PO SCH (21:28)
[2019-04-05 02:54] LABS: ALANINE AMINOTRANSFERASE 23 U/L (12-78); ALBUMIN 3.5 G/DL (3.4-5.0); ALBUMIN/GLOBULIN RATIO 1.1 (1.1-1.5); ALKALINE PHOSPHATASE 142 IU/L (46-116); AMYLASE 35 U/L (25-115); ANION GAP 9 (8-16); ASPARTATE AMINO TRANSFERASE 17 U/L (10-37); BILIRUBIN,TOTAL 0.4 MG/DL (0.1-1.0); BLOOD UREA NITROGEN 4 MG/DL (7-18); BUN/CREATININE RATIO 7.3 (6.6-38.0); CHLORIDE 106 MMOL/L (99-107); CREATININE 0.55 MG/DL (0.40-0.90); GLUCOSE 85 MG/DL (70-104); LIPASE < 50 U/L (73-393); MAGNESIUM 1.7 MG/DL (1.5-2.4); PHOSPHORUS 2.8 MG/DL (2.3-4.5); POTASSIUM 3.6 MMOL/L (3.5-5.1); SODIUM 142 MMOL/L (135-145); TOTAL CARBON DIOXIDE 26.8 MMOL/L (24-32); TOTAL PROTEIN 6.6 G/DL (6.4-8.2); eGFR > 90 ML/MIN
[2019-04-05 03:00] VITALS: BP 139/77
[2019-04-05 05:47] LABS: BASOPHILS % (AUTO) 0.7 % (0-1); EOSINOPHILS # (AUTO) 0.1 X10'3 (0-0.9); EOSINOPHILS % (AUTO) 1.4 % (0-6); HEMATOCRIT 37.4 % (35.0-45.0); HEMOGLOBIN 11.9 g/dl (12.0-16.0); LYMPHOCYTES # (AUTO) 1.2 X10'3 (1.1-4.8); LYMPHOCYTES % (AUTO) 27.8 % (21-51); MEAN CORPUSCULAR HEMOGLOBIN 28.3 PG (27.0-31.0); MEAN CORPUSCULAR HGB CONC 31.9 g/dL (33.0-36.5); MEAN CORPUSCULAR VOLUME 88.7 FL (78-98); MONOCYTES # (AUTO) 0.4 X10'3 (0-0.9); MONOCYTES % (AUTO) 9.8 % (2-12); NEUTROPHILS # (AUTO) 2.7 X10'3 (1.8-7.7); NEUTROPHILS % (AUTO) 60.3 % (42-75); PLATELET COUNT 202 X10'3 (140-440); RED BLOOD COUNT 4.22 X10'6 (4.20-5.60); WHITE BLOOD COUNT 4.4 X10'3 (4.5-11.0)
[2019-04-05 06:00] VITALS: BP 128/78
--- NOTE | 2019-04-05 06:05 | NUR ---
Patient in room PCU 3015. I have received report from KERRY Clayton and had the opportunity to ask questions and assume patient care.
--- NOTE | 2019-04-05 06:19 | NUR ---
Problems reprioritized. Patient report given, questions answered & plan of care reviewed with Roopa Moreira.
[2019-04-05 06:59] LABS: PLATELET ESTIMATE NORMAL
[2019-04-05 07:00] LABS: ANISOCYTOSIS 2+; POIKILOCYTOSIS 1+
[2019-04-05] MEDS: vitamin B comp w/Vit. C tab 1 TAB TABLET PO SCH (07:44)
[2019-04-05] MEDS: vitamin E 400 unit capsule PO SCH (07:45)
[2019-04-05] MEDS: carBAMazepine 100mg chewable tablet PO SCH ×2 (07:45→20:14)
[2019-04-05] MEDS: duloxetine 30mg CAPSULE.DR PO SCH (07:45)
[2019-04-05] MEDS: levetiracetam 250mg tablet PO SCH ×2 (07:45→20:13)
[2019-04-05] MEDS: K and/or MAG REPLACEMENT MC SCH (07:46)
[2019-04-05] MEDS ORDERED: folic acid 1mg tablet PO SCH (08:00)
[2019-04-05] MEDS ORDERED: BIOTIN PO SCH (08:00)
--- NOTE | 2019-04-05 08:00 | NUR ---
Message to Dr. Nacho Ruff # [phone]. Currently NPO - Blood glucose is 70. Is it ok to give her oral glucose? Do you still want her NPO? Barium swallow scheduled for tomorrow, no IV fluids. Patient in nad.
--- NOTE | 2019-04-05 09:53 | NUR ---
Problems re-prioritized. Outcomes reviewed and update.
--- NOTE | 2019-04-05 12:00 | NUR ---
Received VO to DC BG.
[2019-04-05 12:56] VITALS: BP 116/79
[2019-04-05 15:00] VITALS: BP 133/89
[2019-04-05] MEDS: LORazepam 2 mg/ml vial IV PRN (16:05)
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
[2019-04-05 18:00] VITALS: BP 119/77
--- NOTE | 2019-04-05 18:20 | NUR ---
Problems reprioritized. Patient report given, questions answered & plan of care reviewed with KERRY Yoon.
--- NOTE | 2019-04-05 18:23 | NUR ---
Problems reprioritized. Patient report given, questions answered & plan of care reviewed with KERRY Deleon.
[2019-04-05] MEDS: MVI, adult No.4 with vit. K 10 ML in dextrose 5% water 500ml 500 ML IV SCH ×2 (20:13)
[2019-04-05] MEDS: mirtazapine 15mg tablet PO SCH (20:13)
[2019-04-05] MEDS: thiamine inj. 100 MG, folic acid inj. 2 MG in normal saline 100ml IV soln 99 ML IV SCH (20:13)
[2019-04-05 23:00] VITALS: BP 136/66
[2019-04-06] VITALS (7 sets, daily range): BP systolic 127–138; BP diastolic 76–90
--- NOTE | 2019-04-06 06:10 | NUR ---
Patient in room PCU 3015. I have received report from KERRY Deleon and had the opportunity to ask questions and assume patient care.
[2019-04-06 06:11] LABS: BASOPHILS % (AUTO) 0.7 % (0-1); EOSINOPHILS # (AUTO) 0.2 X10'3 (0-0.9); EOSINOPHILS % (AUTO) 4.8 % (0-6); HEMATOCRIT 38.2 % (35.0-45.0); HEMOGLOBIN 12.2 g/dl (12.0-16.0); LYMPHOCYTES # (AUTO) 1.4 X10'3 (1.1-4.8); LYMPHOCYTES % (AUTO) 34.8 % (21-51); MEAN CORPUSCULAR VOLUME 87.6 FL (78-98); MONOCYTES # (AUTO) 0.4 X10'3 (0-0.9); MONOCYTES % (AUTO) 10.5 % (2-12); NEUTROPHILS % (AUTO) 49.2 % (42-75); PLATELET COUNT 196 X10'3 (140-440); RED BLOOD COUNT 4.36 X10'6 (4.20-5.60); RED CELL DISTRIBUTION WIDTH 19.1 % (11.5-14.5)
[2019-04-06 06:27] LABS: ALANINE AMINOTRANSFERASE 20 U/L (12-78); ALBUMIN 3.4 G/DL (3.4-5.0); ALKALINE PHOSPHATASE 140 IU/L (46-116); AMYLASE 39 U/L (25-115); ANION GAP 11 (8-16); ASPARTATE AMINO TRANSFERASE 15 U/L (10-37); BILIRUBIN,TOTAL 0.3 MG/DL (0.1-1.0); BLOOD UREA NITROGEN 5 MG/DL (7-18); BUN/CREATININE RATIO 9.8 (6.6-38.0); CALCIUM 9.1 MG/DL (8.5-10.1); CHLORIDE 108 MMOL/L (99-107); CREATININE 0.51 MG/DL (0.40-0.90); GLUCOSE 105 MG/DL (70-104); LIPASE 67 U/L (73-393); MAGNESIUM 1.8 MG/DL (1.5-2.4); PHOSPHORUS 3.9 MG/DL (2.3-4.5); POTASSIUM 3.4 MMOL/L (3.5-5.1); SODIUM 145 MMOL/L (135-145); TOTAL CARBON DIOXIDE 25.7 MMOL/L (24-32); TOTAL PROTEIN 6.7 G/DL (6.4-8.2); eGFR > 90 ML/MIN
[2019-04-06] MEDS: vitamin B comp w/Vit. C tab 1 TAB TABLET PO SCH (07:48)
[2019-04-06] MEDS: duloxetine 30mg CAPSULE.DR PO SCH (07:48)
[2019-04-06] MEDS: carBAMazepine 100mg chewable tablet PO SCH ×2 (07:48→19:39)
[2019-04-06] MEDS: levetiracetam 250mg tablet PO SCH ×2 (07:48→19:40)
[2019-04-06] MEDS: vitamin E 400 unit capsule PO SCH (07:48)
[2019-04-06] MEDS: potassium Cl 20 mEq SR tablet PO PRN ×3 (07:50→15:32)
[2019-04-06] MEDS: K and/or MAG REPLACEMENT MC SCH (08:00)
--- NOTE | 2019-04-06 10:10 | NUR ---
Problems re-prioritized. Outcomes reviewed and updated.
--- NOTE | 2019-04-06 10:29 | NUR ---
Wound care Note: Wound care was asked to see patient regarding trejo. The patient is with old healing trejo that she has a treatment plan for at home. I spoke with her nurse and she stated the soil surveyor was bringing in the supplies for the treatments. From the pictures the wounds look very much healing without signs of infection.
[2019-04-06] MEDS: docusate sod 100mg capsule PO PRN (15:31)
--- NOTE | 2019-04-06 18:16 | NUR ---
Patient in room PCU 3015. I have received report from KERRY Moreira and had the opportunity to ask questions and assume patient care.
--- NOTE | 2019-04-06 18:26 | NUR ---
Problems reprioritized. Patient report given, questions answered & plan of care reviewed with KERRY Clayton.
[2019-04-06] MEDS: MVI, adult No.4 with vit. K 10 ML in dextrose 5% water 500ml 500 ML IV SCH ×2 (19:38)
[2019-04-06] MEDS: thiamine inj. 100 MG, folic acid inj. 2 MG in normal saline 100ml IV soln 99 ML IV SCH (19:39)
[2019-04-06] MEDS: mirtazapine 15mg tablet PO SCH (21:43)
[2019-04-06] MEDS: LORazepam 2 mg/ml vial IV PRN (23:27)
[2019-04-07 02:00] VITALS: BP 115/83
[2019-04-07 05:39] LABS: ALANINE AMINOTRANSFERASE 18 U/L (12-78); ALBUMIN 3.3 G/DL (3.4-5.0); ALBUMIN/GLOBULIN RATIO 0.9 (1.1-1.5); ALKALINE PHOSPHATASE 131 IU/L (46-116); AMYLASE 41 U/L (25-115); ANION GAP 10 (8-16); ASPARTATE AMINO TRANSFERASE 6 U/L (10-37); BILIRUBIN,TOTAL 0.2 MG/DL (0.1-1.0); BLOOD UREA NITROGEN 7 MG/DL (7-18); BUN/CREATININE RATIO 11.9 (6.6-38.0); CALCIUM 9.5 MG/DL (8.5-10.1); CHLORIDE 107 MMOL/L (99-107); CREATININE 0.59 MG/DL (0.40-0.90); GLUCOSE 121 MG/DL (70-104); LIPASE 72 U/L (73-393); MAGNESIUM 1.8 MG/DL (1.5-2.4); PHOSPHORUS 4.1 MG/DL (2.3-4.5); POTASSIUM 3.8 MMOL/L (3.5-5.1); SODIUM 142 MMOL/L (135-145); TOTAL CARBON DIOXIDE 25.2 MMOL/L (24-32); TOTAL PROTEIN 6.8 G/DL (6.4-8.2); eGFR > 90 ML/MIN
[2019-04-07 05:47] LABS: BASOPHILS % (AUTO) 0.7 % (0-1); EOSINOPHILS # (AUTO) 0.2 X10'3 (0-0.9); EOSINOPHILS % (AUTO) 4.7 % (0-6); HEMOGLOBIN 11.8 g/dl (12.0-16.0); LYMPHOCYTES # (AUTO) 1.6 X10'3 (1.1-4.8); MEAN CORPUSCULAR HEMOGLOBIN 28.6 PG (27.0-31.0); MEAN CORPUSCULAR HGB CONC 32.8 g/dL (33.0-36.5); MEAN CORPUSCULAR VOLUME 87.2 FL (78-98); MEAN PLATELET VOLUME 7.9 FL (7.4-10.4); MONOCYTES # (AUTO) 0.5 X10'3 (0-0.9); MONOCYTES % (AUTO) 10.2 % (2-12); NEUTROPHILS # (AUTO) 2.7 X10'3 (1.8-7.7); NEUTROPHILS % (AUTO) 53.4 % (42-75); PLATELET COUNT 216 X10'3 (140-440); RED BLOOD COUNT 4.12 X10'6 (4.20-5.60); WHITE BLOOD COUNT 5.1 X10'3 (4.5-11.0)
[2019-04-07 06:00] VITALS: BP 125/80
--- NOTE | 2019-04-07 06:23 | NUR ---
Patient in room U 3015. I have received report from Matilde PAYNE and had the opportunity to ask questions and assume patient care. Patient in bed sleeping with sitter in the room. all needs met at this time.
--- NOTE | 2019-04-07 06:26 | NUR ---
Problems reprioritized. Patient report given, questions answered & plan of care reviewed with KERRY ZAMORA.
[2019-04-07 07:05] LABS: ANISOCYTOSIS 2+; PLATELET ESTIMATE NORMAL
[2019-04-07] MEDS: vitamin E 400 unit capsule PO SCH (07:28)
[2019-04-07] MEDS: carBAMazepine 100mg chewable tablet PO SCH ×2 (07:28→20:21)
[2019-04-07] MEDS: levetiracetam 250mg tablet PO SCH ×2 (07:28→20:21)
[2019-04-07] MEDS: vitamin B comp w/Vit. C tab 1 TAB TABLET PO SCH (07:28)
[2019-04-07] MEDS: multivitamins, therapeutics tablet PO SCH (07:28)
[2019-04-07] MEDS: K and/or MAG REPLACEMENT MC SCH (07:29)
[2019-04-07] MEDS: duloxetine 30mg CAPSULE.DR PO SCH (07:29)
[2019-04-07] MEDS: thiamine 100mg tablet PO SCH (07:29)
[2019-04-07] MEDS: folic acid 1mg tablet PO SCH (07:29)
[2019-04-07 11:00] VITALS: BP 117/69
[2019-04-07 15:00] VITALS: BP 122/86
[2019-04-07] MEDS: docusate sod 100mg capsule PO PRN ×2 (16:59→22:03)
--- NOTE | 2019-04-07 18:05 | NUR ---
New hire documentation: I have reviewed and agree with all interventions, assessments performed and documented by Lisa PAYNE.
--- NOTE | 2019-04-07 18:27 | NUR ---
Problems reprioritized. Patient report given, questions answered & plan of care reviewed with Karrie PAYNE.
--- NOTE | 2019-04-07 18:48 | NUR ---
Patient in room PCU 3015. I have received report from Marium/Lisa RNs and had the opportunity to ask questions and assume patient care.
[2019-04-07 19:00] VITALS: BP 137/90
[2019-04-07] MEDS: mirtazapine 15mg tablet PO SCH (20:21)
[2019-04-07 22:00] VITALS: BP 147/91
[2019-04-07] MEDS: Melatonin 3mg tablet PO PRN (22:24)
[2019-04-08 02:00] VITALS: BP 120/80
[2019-04-08 05:16] LABS: BASOPHILS % (AUTO) 0.7 % (0-1); EOSINOPHILS # (AUTO) 0.3 X10'3 (0-0.9); EOSINOPHILS % (AUTO) 5.9 % (0-6); HEMATOCRIT 36.6 % (35.0-45.0); LYMPHOCYTES # (AUTO) 1.5 X10'3 (1.1-4.8); LYMPHOCYTES % (AUTO) 33.5 % (21-51); MEAN CORPUSCULAR HEMOGLOBIN 28.8 PG (27.0-31.0); MEAN CORPUSCULAR HGB CONC 32.7 g/dL (33.0-36.5); MONOCYTES # (AUTO) 0.5 X10'3 (0-0.9); MONOCYTES % (AUTO) 10.6 % (2-12); NEUTROPHILS # (AUTO) 2.1 X10'3 (1.8-7.7); NEUTROPHILS % (AUTO) 49.3 % (42-75); PLATELET COUNT 199 X10'3 (140-440); RED BLOOD COUNT 4.16 X10'6 (4.20-5.60); RED CELL DISTRIBUTION WIDTH 19.3 % (11.5-14.5); WHITE BLOOD COUNT 4.4 X10'3 (4.5-11.0)
[2019-04-08 05:34] LABS: ALANINE AMINOTRANSFERASE 15 U/L (12-78); ALBUMIN 3.2 G/DL (3.4-5.0); ALBUMIN/GLOBULIN RATIO 0.8 (1.1-1.5); ALKALINE PHOSPHATASE 121 IU/L (46-116); AMYLASE 48 U/L (25-115); ANION GAP 11 (8-16); ASPARTATE AMINO TRANSFERASE 7 U/L (10-37); BILIRUBIN,TOTAL 0.2 MG/DL (0.1-1.0); BLOOD UREA NITROGEN 10 MG/DL (7-18); BUN/CREATININE RATIO 20.4 (6.6-38.0); CALCIUM 9.5 MG/DL (8.5-10.1); CHLORIDE 107 MMOL/L (99-107); CREATININE 0.49 MG/DL (0.40-0.90); GLUCOSE 117 MG/DL (70-104); LIPASE 98 U/L (73-393); MAGNESIUM 1.8 MG/DL (1.5-2.4); PHOSPHORUS 4.2 MG/DL (2.3-4.5); SODIUM 141 MMOL/L (135-145); TOTAL CARBON DIOXIDE 23.5 MMOL/L (24-32); eGFR > 90 ML/MIN
[2019-04-08 06:00] VITALS: BP 122/75
--- NOTE | 2019-04-08 06:10 | NUR ---
Patient in room PCU 3015. I have received report from Karrie PAYNE and had the opportunity to ask questions and assume patient care.
--- NOTE | 2019-04-08 06:10 | NUR ---
[place]rientee documentation: I have reviewed and agree with all interventions, assessments performed and documented by Rima PAYNE
--- NOTE | 2019-04-08 06:21 | NUR ---
Problems reprioritized. Patient report given, questions answered & plan of care reviewed with Simon/Lisa RNs.
--- NOTE | 2019-04-08 06:29 | NUR ---
Patient in room PCU 3015. I have received report from Karrie PAYNE and had the opportunity to ask questions and assume patient care. Pt is in bed sleeping, sitter is at bedside. All needs met at this time.
[2019-04-08] MEDS: multivitamins, therapeutics tablet PO SCH (07:32)
[2019-04-08] MEDS: levetiracetam 250mg tablet PO SCH ×2 (07:32→21:18)
[2019-04-08] MEDS: vitamin E 400 unit capsule PO SCH (07:33)
[2019-04-08] MEDS: vitamin B comp w/Vit. C tab 1 TAB TABLET PO SCH (07:33)
[2019-04-08] MEDS: carBAMazepine 100mg chewable tablet PO SCH ×2 (07:33→21:18)
[2019-04-08] MEDS: thiamine 100mg tablet PO SCH (07:33)
[2019-04-08] MEDS: folic acid 1mg tablet PO SCH (07:33)
[2019-04-08] MEDS: duloxetine 30mg CAPSULE.DR PO SCH (07:34)
[2019-04-08] MEDS: K and/or MAG REPLACEMENT MC SCH (07:38)
[2019-04-08] MEDS: docusate sod 100mg capsule PO PRN (08:06)
--- NOTE | 2019-04-08 10:20 | NUR ---
Reassessment: Pt s/p BSS 04/[address] recs continuing current diet order as pt with no s/s aspiration. Pt continues on regular diet with good PO intake averaging 75% of meals and receiving Ensure pudding likely meeting nutrient needs. No documented LBM however per GI trends bowel pattern documented as constipation 04/06; pt with Colace BID PRN given 04/06-present. Will send prunes with lunch to help with BM. Etoh w/d protocol meds changed to PO. Pt continues with sitter and in restraints, working on conservatorship per MD notes. Will continue to follow. Rec: 1. continue regular diet; encourage PO 2. MVI/thiamin/folic for etoh 3. ensure pudding TIDWM 4. weekly wts 5. routine bowel care Addendum: 04/08/19 at [address] Amended: Links added.
[2019-04-08 11:00] VITALS: BP 99/66
[2019-04-08 16:34] VITALS: BP 110/69
--- NOTE | 2019-04-08 18:10 | NUR ---
Problems reprioritized. Patient report given, questions answered & plan of care reviewed with Pat RN.
[2019-04-08 19:00] VITALS: BP 124/71
[2019-04-08] MEDS: mirtazapine 15mg tablet PO SCH (21:17)
[2019-04-08 23:00] VITALS: BP 142/95
[2019-04-08] MEDS: Melatonin 3mg tablet PO PRN (23:42)
[2019-04-09 03:00] VITALS: BP 105/67
[2019-04-09 06:00] VITALS: BP 128/71
--- NOTE | 2019-04-09 06:00 | NUR ---
Patient in room PCU 3015. I have received report from Agnes RN and had the opportunity to ask questions and assume patient care.
--- NOTE | 2019-04-09 06:29 | NUR ---
Patient in room PCU 3015. I have received report from Agnes RN and had the opportunity to ask questions and assume patient care.
[2019-04-09] MEDS: carBAMazepine 100mg chewable tablet PO SCH ×2 (07:46→20:06)
[2019-04-09] MEDS: thiamine 100mg tablet PO SCH (07:46)
[2019-04-09] MEDS: levetiracetam 250mg tablet PO SCH ×2 (07:46→20:06)
[2019-04-09] MEDS: duloxetine 30mg CAPSULE.DR PO SCH (07:46)
[2019-04-09] MEDS: folic acid 1mg tablet PO SCH (07:47)
[2019-04-09] MEDS: vitamin B comp w/Vit. C tab 1 TAB TABLET PO SCH (07:47)
[2019-04-09] MEDS: multivitamins, therapeutics tablet PO SCH (07:47)
[2019-04-09] MEDS: vitamin E 400 unit capsule PO SCH (07:47)
[2019-04-09] MEDS: mineral oil/petrolatum, white cream 113gm jar TP SCH ×2 (07:47→20:07)
[2019-04-09] MEDS: K and/or MAG REPLACEMENT MC SCH (08:00)
[2019-04-09 11:00] VITALS: BP 142/84
[2019-04-09 15:00] VITALS: BP 110/63
--- NOTE | 2019-04-09 18:04 | NUR ---
I agree with all Lisa PAYNE orientees charting
--- NOTE | 2019-04-09 18:10 | NUR ---
Problems reprioritized. Patient report given, questions answered & plan of care reviewed with Francisca PAYNE.
--- NOTE | 2019-04-09 18:10 | NUR ---
Patient in room PCU 3015. I have received report from Simon PAYNE & Lisa PAYNE and had the opportunity to ask questions and assume patient care.
--- NOTE | 2019-04-09 18:18 | NUR ---
Problems reprioritized. Patient report given, questions answered & plan of care reviewed with Francisca PAYNE.
[2019-04-09 19:00] VITALS: BP 123/72
[2019-04-09] MEDS: mirtazapine 15mg tablet PO SCH (20:05)
[2019-04-09 23:00] VITALS: BP 107/57
[2019-04-10 03:00] VITALS: BP 123/70
[2019-04-10 06:00] VITALS: BP 138/63
--- NOTE | 2019-04-10 06:00 | NUR ---
Patient in room PCU 3015. I have received report from Francisca PAYNE and had the opportunity to ask questions and assume patient care.
--- NOTE | 2019-04-10 06:15 | NUR ---
Problems reprioritized. Patient report given, questions answered & plan of care reviewed with Dedra PAYNE.
[2019-04-10] MEDS: mineral oil/petrolatum, white cream 113gm jar TP SCH (08:00)
[2019-04-10] MEDS: K and/or MAG REPLACEMENT MC SCH (08:00)
[2019-04-10] MEDS: vitamin B comp w/Vit. C tab 1 TAB TABLET PO SCH (08:23)
[2019-04-10] MEDS: vitamin E 400 unit capsule PO SCH (08:23)
[2019-04-10] MEDS: thiamine 100mg tablet PO SCH (08:23)
[2019-04-10] MEDS: multivitamins, therapeutics tablet PO SCH (08:23)
[2019-04-10] MEDS: duloxetine 30mg CAPSULE.DR PO SCH (08:23)
[2019-04-10] MEDS: folic acid 1mg tablet PO SCH (08:24)
[2019-04-10] MEDS: levetiracetam 250mg tablet PO SCH (08:24)
[2019-04-10] MEDS: carBAMazepine 100mg chewable tablet PO SCH (08:24)
[2019-04-10] MEDS ORDERED: LEVE750T6 PO (10:25)
[2019-04-10] MEDS ORDERED: CARB100T15 PO (10:25)
--- NOTE | 2019-04-10 13:10 | NUR ---
Patient discharged stable to home. Friend/Caregiver Israel present for discharge instructions. Instructions given verbally and written to patient and Israel, both verbalized understanding. Personal belongings returned to patient. No IV present. Tele box removed and returned to telecommunications repairer room. Prescriptions phoned to [facility] on [address] in [place], [place]. Patient wheeled out via wheelchair by staff to private vehicle accompanied by Israel.
--- NOTE | 2019-04-10 18:36 | NUR ---
Patient left rings on d/c. Friend who was present for d/c came back to milk pickup truck driver rings
== END 2019-04-10 13:10 | disposition home health service (06) | DRG 53 ==
LOC: ER 16:46 → PCU 3S 20:23 → CMPBEDREQ 04-06 15:15
PROVIDERS: ADMIT Family Medicine; ATTEND Family Medicine
DX: G40.909 Epilepsy, unspecified, not intractable, without status epilepticus (principal); R64 Cachexia; R47.01 Aphasia; R29.6 Repeated falls; F10.21 Alcohol dependence, in remission; Z79.899 Other long term (current) drug therapy; Z91.19 Patient's noncompliance with other medical treatment and regimen; Z68.24 Body mass index [BMI] 24.0-24.9, adult; W18.39XA Other fall on same level, initial encounter; Y93.89 Activity, other specified; Y92.238 Other place in hospital as the place of occurrence of the external cause; Y99.8 Other external cause status; S00.83XA Contusion of other part of head, initial encounter; Z78.1 Physical restraint status; Z91.14 Patient's other noncompliance with medication regimen
CPT/HCPCS: 36415; 70450; 71045; 80053; 80305; 80320; 81001; 82140; 82150; 82948; 83605; 83690; 83735; 84100; 84132; 85025; 85610; 85730; 87040; 87081; 92508; 92616; 93005; 96365; 96367; 96368; 96375; 97110; 97116; 97162; 97530; 99285; G0378; J1953; J2060; J2405; J2704; J3411; J3480; J3490; J7060; Q0163; Q2009

== ENCOUNTER 2019-04-12 19:20 | Emergency (ER) | payer MEDICAID ==
[~2019-04-12] VITALS: Ht 154.9 cm; Wt 54.5 kg
[~2019-04-12 19:20] MED LIST changes: +BIOT10TA4 PO; +CARB100T15 PO; -CARB200T8 PO; -COLL30OI TP; +DULO30CA52 PO; -DULO60CA65 PO; +FOLI1TAB16 PO; -LEVE500T PO; +LEVE750T6 PO; -POTA20TA19 PO; +THIA100T70 PO; +VITA1CAP19 PO; -propofol 1000mg/100ml bottle 100 ML IV SCH
[2019-04-12 19:27] VITALS: BP 108/68
== END 2019-04-12 22:46 | disposition home or self-care (01) ==
LOC: ER 19:20
DX: S01.81XA Laceration without foreign body of other part of head, initial encounter (principal); S00.31XA Abrasion of nose, initial encounter; S40.212A Abrasion of left shoulder, initial encounter; S00.212A Abrasion of left eyelid and periocular area, initial encounter; F10.99 Alcohol use, unspecified with unspecified alcohol-induced disorder; Z86.69 Personal history of other diseases of the nervous system and sense organs; Z98.890 Other specified postprocedural states; Z79.899 Other long term (current) drug therapy; W18.39XA Other fall on same level, initial encounter; Y93.89 Activity, other specified; Y92.89 Other specified places as the place of occurrence of the external cause; Y99.8 Other external cause status; Y90.9 Presence of alcohol in blood, level not specified
CPT/HCPCS: 12011; 70450; 72125; 99284

== ENCOUNTER 2019-04-22 14:35 | Emergency (ER) | payer MEDICAID ==
[~2019-04-22] VITALS: Ht 167.6 cm; Wt 46.0 kg
--- NOTE | 2019-04-22 14:41 | NUR ---
SEIZURE PADS APPLIED
[2019-04-22 16:09] LABS: BASOPHILS % (AUTO) 0.4 % (0-1); EOSINOPHILS % (AUTO) 0 % (0-6); HEMATOCRIT 31.4 % (35.0-45.0); HEMOGLOBIN 10.3 g/dl (12.0-16.0); LYMPHOCYTES # (AUTO) 0.4 X10'3 (1.1-4.8); LYMPHOCYTES % (AUTO) 5.3 % (21-51); MEAN CORPUSCULAR HEMOGLOBIN 28.6 PG (27.0-31.0); MEAN CORPUSCULAR HGB CONC 32.7 g/dL (33.0-36.5); MEAN CORPUSCULAR VOLUME 87.4 FL (78-98); MEAN PLATELET VOLUME 6.8 FL (7.4-10.4); MONOCYTES # (AUTO) 0.4 X10'3 (0-0.9); MONOCYTES % (AUTO) 4.2 % (2-12); NEUTROPHILS # (AUTO) 7.5 X10'3 (1.8-7.7); NEUTROPHILS % (AUTO) 90.1 % (42-75); PLATELET COUNT 319 X10'3 (140-440); RED BLOOD COUNT 3.59 X10'6 (4.20-5.60); RED CELL DISTRIBUTION WIDTH 18.9 % (11.5-14.5); WHITE BLOOD COUNT 8.4 X10'3 (4.5-11.0)
[2019-04-22 16:24] LABS: ALANINE AMINOTRANSFERASE 28 U/L (12-78); ALBUMIN 3.7 G/DL (3.4-5.0); ALBUMIN/GLOBULIN RATIO 1.2 (1.1-1.5); ALKALINE PHOSPHATASE 174 IU/L (46-116); ANION GAP 8 (8-16); ASPARTATE AMINO TRANSFERASE 33 U/L (10-37); BILIRUBIN,TOTAL 0.4 MG/DL (0.1-1.0); BLOOD UREA NITROGEN 10 MG/DL (7-18); BUN/CREATININE RATIO 14.5 (6.6-38.0); CHLORIDE 102 MMOL/L (99-107); CREATININE 0.69 MG/DL (0.40-0.90); ETHANOL < 0.010 GM/DL (0.0-0.010); GLUCOSE 98 MG/DL (70-104); POTASSIUM 3.7 MMOL/L (3.5-5.1); SODIUM 143 MMOL/L (135-145); TOTAL CARBON DIOXIDE 33.2 MMOL/L (24-32); TOTAL PROTEIN 6.9 G/DL (6.4-8.2); eGFR 89 ML/MIN
[2019-04-22 16:34] LABS: CLARITY,URINE SLIGHTLY CLOUDY (Clear); COLOR,URINE YELLOW (Yellow); GLUCOSE, URINE NEGATIVE (Neg); KETONES,URINE 15 mg/dl (Neg); LEUKOCYTE ESTERASE ,URINE NEGATIVE (Neg); NITRITES, URINE NEGATIVE (Neg); OCCULT BLOOD,URINE NEGATIVE (Neg); PROTEIN,URINE 100 mg/dl (Neg); UA COLLECTION TYPE STRAIGHT CATH; URINE HCG NEGATIVE (NEG); UROBILINOGEN,URINE 0.2 E.U/dL (0.2-1.0)
[2019-04-22 16:40] LABS: ANISOCYTOSIS 2+; PLATELET ESTIMATE NORMAL; STOMATOCYTES 1+
[2019-04-22 16:43] LABS: BACTERIA,URINE FEW /HPF (Neg); MUCUS STRANDS MODERATE /LPF (Neg); RBC,URINE 0-2 /HPF (0-2); SQUAMOUS EPITHELIAL CELL,UR FEW /LPF (FEW); WBC,URINE 0-4 /HPF (0-4)
[2019-04-22 16:45] LABS: AMORPHOUS PHOSPHATES 1+
[2019-04-22] MEDS ORDERED: levetiracetam inj 500 MG in normal saline 100ml IV soln 95 ML IV STA (16:54)
[2019-04-22 18:12] VITALS: BP 134/76
== END 2019-04-22 18:15 | disposition home or self-care (01) ==
LOC: ER 14:36
DX: S00.83XA Contusion of other part of head, initial encounter (principal); Z98.890 Other specified postprocedural states; Z79.899 Other long term (current) drug therapy; W18.49XA Other slipping, tripping and stumbling without falling, initial encounter; Y93.89 Activity, other specified; Y92.091 Bathroom in other non-institutional residence as the place of occurrence of the external cause; Y99.9 Unspecified external cause status
CPT/HCPCS: 36415; 70450; 80053; 80320; 81001; 81025; 85025; 96365; 99284; J1953